=== PATIENT | female | born 1930 | race Caucasian/White ===

== ENCOUNTER 2018-01-12 15:03 | Inpatient (IN) | payer OTHER ==
[~2018-01-12] VITALS: Ht 157.5 cm; Wt 49.9 kg
[2018-01-12] MEDS ORDERED: DIPH25CA83 PO (15:30)
[2018-01-12] MEDS ORDERED: IV NORMAL SALINE 1000 ML BAG IV ONE (15:30)
[2018-01-12 15:45] LABS: BASOPHILS # (AUTO) 0.1 K/uL (0.0-8.0); BASOPHILS % (AUTO) 1.1 % (0.0-2.0); EOSINOPHILS # (AUTO) 0.6 K/uL (0.0-0.7); EOSINOPHILS % (AUTO) 5.7 % (0.0-7.0); HEMATOCRIT 36.6 % (31.2-41.9); HEMOGLOBIN 12.3 g/dL (10.9-14.3); LYMPHOCYTES # (AUTO) 2.3 K/uL (20.0-40.0); LYMPHOCYTES % (AUTO) 21.8 % (20.5-51.5); MEAN CORPUSCULAR HEMOGLOBIN 31.5 uug (24.7-32.8); MEAN CORPUSCULAR HGB CONC 34 g/dL (32.3-35.6); MEAN CORPUSCULAR VOLUME 93.5 fL (75.5-95.3); MONOCYTES # (AUTO) 0.5 K/uL (2.0-10.0); NEUTROPHILS % (AUTO) 66.4 % (38.5-71.5); PLATELET COUNT (AUTO) 258 K/uL (179-408); RED BLOOD CELL COUNT(AUTO) 3.91 MIL/uL (3.63-4.92); WHITE BLOOD COUNT (AUTO) 10.6 K/uL (3.8-11.8)
[2018-01-12 15:57] LABS: CARBON DIOXIDE 29 mmol/L (21-32); CHLORIDE 106 mmol/L (98-107); CREATININE 0.8 mg/dL (0.6-1.3); GLUCOSE 121 mg/dL (74-106); POTASSIUM 3.7 mmol/L (3.5-5.1); UREA NITROGEN, BLOOD 18 mg/dL (7-18)
[2018-01-12 16:02] LABS: ALANINE AMINOTRANSFERASE 32 U/L (14-59); ALKALINE PHOSPHATASE 90 U/L (50-136); ASPARTATE AMINOTRANSFERASE 29 U/L (15-37); BILIRUBIN,DIRECT 0.1 mg/dL (0.0-0.2); BILIRUBIN,TOTAL 0.4 mg/dL (0.2-1.0); TOTAL PROTEIN, SERUM 7.1 g/dL (6.4-8.2)
[2018-01-12 16:03] LABS: ACETAMINOPHEN < 2.0 ug/mL (10-30)
[2018-01-12 16:04] LABS: ETHANOL < 3 MG/DL (0-0)
--- NOTE | 2018-01-12 16:32 | NUR ---
MSE COMPLETED, SBAR REPORT TO HORACIO DAVENPORT. ALL MD ORDERS COMPLETED EXCEPT URINE NOT SENT, PT STATED NO URINE. 1 L0.9 NS INFUSING AND TO BE COMPLETED BY HORACIO DAVENPORT. BELONGINGS LIST DONE, MRSA NARES/OREDED AND SENT. PT COOPERATIVE.
--- NOTE | 2018-01-12 16:50 | NUR ---
Received this admission from ER per adonis this 87 yo female with the diagnosis of Generalized Weakness. Transferred to bed comfortably. Routine admission care rendered. Awake, alert, oriented x 4, able to move all extremities on purpose, unsteady gait. Saline lock LFA. Noted generalized rashes. Dr. Monroe informed of admission
[2018-01-12 17:08] VITALS: BP 176/83
[2018-01-12] MEDS ORDERED: ENALAPRILAT DIHYDRATE INJ 2.5 MG in IV NORMAL SALINE 50 ML IV PRN (18:30)
[2018-01-12] MEDS ORDERED: ACETAMINOPHEN 325 MG TABLET PO PRN (18:30)
[2018-01-12] MEDS ORDERED: ONDANSETRON 4 MG/2 ML VIAL IV PRN (18:30)
[2018-01-12] MEDS ORDERED: HYDROCODONE/APAP 5-325MG TABLET PO PRN (18:30)
[2018-01-12] MEDS ORDERED: MAGNESIUM HYDROXIDE 30 ML LIQUID UDC PO PRN (18:30)
--- NOTE | 2018-01-12 18:35 | NUR ---
Placed on [employer] SR
--- NOTE | 2018-01-12 19:30 | NUR ---
RECEIVED PATIENT IN BED ALERT, ORIENTED, NO SOB NO CHEST PAIN, SINUS RYTHM READING IN TELE, ASSISTED WITH TOILETING, KEPT CLEAN AND DRY. C0NT TO MONITOR.
[2018-01-12 19:35] VITALS: BP 128/59
[2018-01-12] MEDS: DOCUSATE SODIUM 100 MG CAPSULE PO SCH (20:19)
[2018-01-12] MEDS: METOPROLOL TARTRATE 25 MG TABLET PO SCH (20:24)
[2018-01-12] MEDS ORDERED: DOCUSATE SODIUM 250 MG CAPSULE PO SCH (21:00)
[2018-01-12 23:40] VITALS: BP 136/66
[2018-01-13] MEDS: MELATONIN 3 MG TABLET PO PRN (02:31)
--- NOTE | 2018-01-13 05:29 | NUR ---
PATIENT SLEPT LATER PART OF THE NIGHT, NO SOB NO CHEST PAIN NOTED, SINUS RTYTHM READING AT THIS TIME. ASSISTED WITH TOILETING, KEPT CLEAN AND DRY, CALL LIGHT WITHIN REACH.
[2018-01-13] MEDS: PANTOPRAZOLE SODIUM 40 MG TABLET.DR PO SCH (06:23)
[2018-01-13 07:48] LABS: BASOPHILS # (AUTO) 0.1 K/uL (0.0-8.0); BASOPHILS % (AUTO) 1.1 % (0.0-2.0); EOSINOPHILS # (AUTO) 0.9 K/uL (0.0-0.7); EOSINOPHILS % (AUTO) 7.9 % (0.0-7.0); HEMATOCRIT 32.5 % (31.2-41.9); HEMOGLOBIN 11.2 g/dL (10.9-14.3); LYMPHOCYTES # (AUTO) 2.5 K/uL (20.0-40.0); LYMPHOCYTES % (AUTO) 23.4 % (20.5-51.5); MEAN CORPUSCULAR HEMOGLOBIN 31.9 uug (24.7-32.8); MEAN CORPUSCULAR HGB CONC 34 g/dL (32.3-35.6); MEAN CORPUSCULAR VOLUME 92.5 fL (75.5-95.3); MONOCYTES # (AUTO) 0.6 K/uL (2.0-10.0); NEUTROPHILS # (AUTO) 6.6 K/uL (1.8-8.9); NEUTROPHILS % (AUTO) 61.6 % (38.5-71.5); PLATELET COUNT (AUTO) 220 K/uL (179-408); RED BLOOD CELL COUNT(AUTO) 3.52 MIL/uL (3.63-4.92); WHITE BLOOD COUNT (AUTO) 10.8 K/uL (3.8-11.8)
--- NOTE | 2018-01-13 08:00 | NUR ---
Patient noted to have dry, thickened scaly skin with reddened border. Patient stated skin condition history of psoriasis. Patient is alert, in no distress.
[2018-01-13] MEDS: METOPROLOL TARTRATE 25 MG TABLET PO SCH (08:06)
[2018-01-13] MEDS: ASPIRIN EC 81 MG TABLET.DR PO SCH (08:06)
[2018-01-13 08:07] LABS: IRON, SERUM 45 ug/dL (50-175)
[2018-01-13 08:16] LABS: THYROID STIMULATING HORMONE 63.476 mIU/mL (0.358-3.740)
[2018-01-13 08:51] LABS: ALANINE AMINOTRANSFERASE 26 U/L (14-59); ALKALINE PHOSPHATASE 76 U/L (50-136); ASPARTATE AMINOTRANSFERASE 29 U/L (15-37); BILIRUBIN,TOTAL 0.2 mg/dL (0.2-1.0); CARBON DIOXIDE 22 mmol/L (21-32); CHLORIDE 108 mmol/L (98-107); CHOLESTEROL 173 mg/dL (<200); CREATININE 0.8 mg/dL (0.6-1.3); GLUCOSE 95 mg/dL (74-106); HDL CHOLESTEROL 30 mg/dL (40-60); MAGNESIUM 1.7 mg/dL (1.8-2.4); PHOSPHOROUS 3.2 mg/dL (2.5-4.9); POTASSIUM 3.9 mmol/L (3.5-5.1); TOTAL PROTEIN, SERUM 5.9 g/dL (6.4-8.2); TRIGLYCERIDES 271 MG/DL (30-150); UREA NITROGEN, BLOOD 15 mg/dL (7-18)
[2018-01-13 11:29] VITALS: BP 161/67
[2018-01-13] MEDS ORDERED: HYDROCORTISONE 2.5% ONT. 28.35 GM TUBE TP SCH (11:30)
[2018-01-13 11:41] VITALS: BP 149/70
[2018-01-13] MEDS: MAGNESIUM SULFATE/D5W 100 ML IV SCH ×2 (13:23→15:40)
--- NOTE | 2018-01-13 14:40 | NUR ---
Patient off tele monitor temporarily, went to have a shower assisted by ROSI, permission given by .
[2018-01-13] MEDS: diphenhydrAMINE 25 MG CAP PO PRN (15:41)
[2018-01-13 15:54] VITALS: BP 136/63
[2018-01-13] MEDS: CLOBETASOL PROPIONATE 0.05% CREAM 15 GM TUBE TOP SCH (16:58)
[2018-01-13 19:23] VITALS: BP 151/46
--- NOTE | 2018-01-13 20:00 | NUR ---
PT IN ROOM ALERT AWAKE IN NO ACUTE DISTRESS. PT DOWNGRADED TO MEDSURG AT THIS TIME. PT REMINDED TO ASK FOR ASSISTANCE WHEN NEEDED. PRACTICE PROFESSIONAL SHOWING SINUS RHYTHM. NO ACUTE DISTRESS NOTED. PT AWAITING PSYCH CONSULT. WILL CONTINUE TO MONITOR. CALL LIGHT PLACED WITHIN REACH.
[2018-01-13] MEDS: DOCUSATE SODIUM 100 MG CAPSULE PO SCH (20:26)
[2018-01-13] MEDS: ATORVASTATIN 10 MG TABLET PO SCH (20:26)
[2018-01-13] MEDS: LOSARTAN POTASSIUM 25 MG TABLET PO SCH (20:28)
[2018-01-14 03:37] VITALS: BP 160/74
[2018-01-14] MEDS: hydrALAZINE HCL 25 MG TABLET PO PRN (05:58)
[2018-01-14] MEDS: diphenhydrAMINE 25 MG CAP PO PRN ×3 (06:00→18:28)
[2018-01-14] MEDS: LEVOTHYROXINE SODIUM 50 MCG TABLET PO SCH (06:00)
--- NOTE | 2018-01-14 06:00 | NUR ---
PT ABLE TO SLEEP OVERNIGHT WITHOUT DIFFICULTY. REQUESTED PRN BENADRYL FOR HER GENERALIZED ITCHING. DENIES ANY PAIN OR SOB. NO INCREASED WEAKNESS AT THIS TIME. WILL CONTINUE TO MONITOR. CALL LIGHT WITHIN REACH.
[2018-01-14] MEDS: PANTOPRAZOLE SODIUM 40 MG TABLET.DR PO SCH (06:01)
[2018-01-14 07:26] LABS: BASOPHILS # (AUTO) 0.1 K/uL (0.0-8.0); BASOPHILS % (AUTO) 1.2 % (0.0-2.0); EOSINOPHILS # (AUTO) 0.9 K/uL (0.0-0.7); EOSINOPHILS % (AUTO) 8.4 % (0.0-7.0); HEMATOCRIT 34.5 % (31.2-41.9); LYMPHOCYTES % (AUTO) 19.5 % (20.5-51.5); MEAN CORPUSCULAR HGB CONC 35 g/dL (32.3-35.6); MEAN CORPUSCULAR VOLUME 92.2 fL (75.5-95.3); MONOCYTES # (AUTO) 0.6 K/uL (2.0-10.0); MONOCYTES % (AUTO) 6.2 % (0.0-11.0); NEUTROPHILS # (AUTO) 6.6 K/uL (1.8-8.9); NEUTROPHILS % (AUTO) 64.7 % (38.5-71.5); PLATELET COUNT (AUTO) 221 K/uL (179-408); RED BLOOD CELL COUNT(AUTO) 3.75 MIL/uL (3.63-4.92); WHITE BLOOD COUNT (AUTO) 10.2 K/uL (3.8-11.8)
[2018-01-14 07:45] LABS: ALANINE AMINOTRANSFERASE 29 U/L (14-59); ALKALINE PHOSPHATASE 86 U/L (50-136); ASPARTATE AMINOTRANSFERASE 27 U/L (15-37); BILIRUBIN,TOTAL 0.3 mg/dL (0.2-1.0); CARBON DIOXIDE 25 mmol/L (21-32); CHLORIDE 106 mmol/L (98-107); CREATININE 0.8 mg/dL (0.6-1.3); GLUCOSE 109 mg/dL (74-106); MAGNESIUM 2.2 mg/dL (1.8-2.4); PHOSPHOROUS 3.6 mg/dL (2.5-4.9); POTASSIUM 3.8 mmol/L (3.5-5.1); TOTAL PROTEIN, SERUM 6.4 g/dL (6.4-8.2); UREA NITROGEN, BLOOD 13 mg/dL (7-18)
[2018-01-14] MEDS: ASPIRIN EC 81 MG TABLET.DR PO SCH (09:34)
[2018-01-14] MEDS: LOSARTAN POTASSIUM 25 MG TABLET PO SCH (09:34)
[2018-01-14] MEDS: CLOBETASOL PROPIONATE 0.05% CREAM 15 GM TUBE TOP SCH ×2 (09:35→16:59)
[2018-01-14 11:30] VITALS: BP 132/54
[2018-01-14] MEDS: METOPROLOL TARTRATE 25 MG TABLET PO SCH ×2 (12:08→20:11)
[2018-01-14 16:05] VITALS: BP 126/65
--- NOTE | 2018-01-14 16:30 | NUR ---
Patient noted to have IV access removed, slight bleeding noted. Patient stated "I was just removing the tape and it got pulled out". "I don't want this (pointing to the IV access site).
--- NOTE | 2018-01-14 16:40 | NUR ---
Per ok for patient with NO IV ACCESS. Patient has been requesting since yesterday to have her IV access removed.
[2018-01-14 18:37] LABS: *BILIRUBIN,URIN NEGATIVE (NEGATIVE); *BLOOD, URINE NEGATIVE (NEGATIVE); *CLARITY,URINE CLEAR (CLEAR); *COLOR,URINE YELLOW (YELLOW); *KETONES,URINE NEGATIVE (NEGATIVE); *PROTEIN,URINE NEGATIVE (NEGATIVE); *UROBILINOGEN,URINE 0.2 E.U./dl (NORMAL); LEUKOCYTE ESTERASE ,URINE NEGATIVE (NEGATIVE); NITRITE, URINE NEGATIVE (NEGATIVE); UGLUCOSE NEGATIVE (NEGATIVE)
--- NOTE | 2018-01-14 18:40 | NUR ---
Patient seen by psychiatrist.
--- NOTE | 2018-01-14 18:40 | NUR ---
Patient cooperative, no behavioral issues. Assisted with toileting needs. Medication administered as ordered. All needs met.
[2018-01-14 19:25] VITALS: BP 115/67
[2018-01-14 19:46] LABS: MUCUS,URINE FEW /LPF (0-FEW); SQUAMOUS EPITHELIAL CELL,UR FEW /HPF (NONE SEEN); WBC,URINE 0-3 /HPF (0-3)
[2018-01-14] MEDS: SERTRALINE HCL 50 MG TABLET PO SCH (20:11)
[2018-01-14] MEDS: ATORVASTATIN 10 MG TABLET PO SCH (20:11)
[2018-01-14] MEDS: DOCUSATE SODIUM 100 MG CAPSULE PO SCH (20:11)
[2018-01-15 03:35] VITALS: BP 168/64
[2018-01-15] MEDS: hydrALAZINE HCL 25 MG TABLET PO PRN (05:29)
--- NOTE | 2018-01-15 06:00 | NUR ---
PT ALERT AWAKE IN NO ACUTE DISTRESS. PT STILL PRESENT WITH OCCASIONAL EPISODES OF CONFUSION. NO INCREASED EPISODES OF WEAKNESS NOTED. ABLE TO MAKE NEEDS KNOWN BUT NEEDS FREQUENT RE-ORIENTATION AND RE-DIRECTION. BP NOTED 168/64. PRN HYDRALAZINE WAS ADMINISTERED. WILL CONTINUE TO MONITOR. CALL LIGHT WITHIN REACH.
[2018-01-15] MEDS: LEVOTHYROXINE SODIUM 50 MCG TABLET PO SCH (06:07)
[2018-01-15] MEDS: PANTOPRAZOLE SODIUM 40 MG TABLET.DR PO SCH (06:07)
--- NOTE | 2018-01-15 07:15 | NUR ---
Received report from store director nurse, patient in bed awake, no distress noted at this time, bed in low position, side rials up x2. Bed alarm on. Patient reported that she wants to get to sleep, because she hasnt slept in days.
[2018-01-15] MEDS: ASPIRIN EC 81 MG TABLET.DR PO SCH (09:05)
[2018-01-15] MEDS: METOPROLOL TARTRATE 25 MG TABLET PO SCH ×2 (09:06→21:13)
[2018-01-15] MEDS: SERTRALINE HCL 50 MG TABLET PO SCH (09:07)
[2018-01-15] MEDS: LOSARTAN POTASSIUM 25 MG TABLET PO SCH (09:07)
[2018-01-15] MEDS: CLOBETASOL PROPIONATE 0.05% CREAM 15 GM TUBE TOP SCH ×2 (09:08→17:00)
[2018-01-15 11:35] VITALS: BP 136/58
[2018-01-15 16:05] VITALS: BP 147/72
[2018-01-15] MEDS ORDERED: ASPI-618 PO (17:33)
[2018-01-15] MEDS ORDERED: ACID1TAB4 PO (17:33)
[2018-01-15] MEDS ORDERED: SERT50TA12 PO (17:33)
[2018-01-15] MEDS ORDERED: CLOB15CR10 TOP (17:33)
[2018-01-15] MEDS ORDERED: LOSA50TA3 PO (17:33)
[2018-01-15] MEDS ORDERED: CHOL10002 PO (17:33)
[2018-01-15] MEDS ORDERED: ATOR10TA PO (17:33)
[2018-01-15] MEDS ORDERED: METO25TA6 PO (17:33)
[2018-01-15] MEDS ORDERED: DOCU100C36 PO (17:33)
[2018-01-15] MEDS ORDERED: Amoxicillin-Clavul 875MG Tab PO (17:33)
[2018-01-15] MEDS ORDERED: LEVO50TA8 PO (17:33)
[2018-01-15] MEDS: AMOXICILLIN-CLAVUL 875-125MG TABLET PO SCH ×2 (18:17→21:12)
--- NOTE | 2018-01-15 18:42 | NUR ---
PATIENT HAS BEEN COOPERATIVE WITH CARE, CONFUSED AT TIMES, AND ATTEMPTING TO GET OUT OF BED. PATIENT IS OCCASIONALLY CONFUSED, ASKING WHEN SHE IS GOING TO GO HOME. ALL NEEDS MET, BED IN LOW POSITION, SIDE RAILS UP X2, BED ALARM ON. Addendum: 01/15/18 at 1849 by DAVID GREGG RN DISREGARD: WRONG PATIENT
--- NOTE | 2018-01-15 18:49 | NUR ---
PATIENT HAS BEEN COOPERATIVE WITH CARE, PATIENT APPEARS ANXIOUS TO WHERE SHE WILL BE DISCHARGED TO. PATIENT CONTINUES TO REPEAT THAT SHE WANTS TO GO TO A PSYCHIATRIC UNIT AT [facility].
[2018-01-15 20:00] VITALS: BP 159/62
[2018-01-15] MEDS: ATORVASTATIN 10 MG TABLET PO SCH (21:00)
[2018-01-15] MEDS: diphenhydrAMINE 25 MG CAP PO PRN (21:12)
[2018-01-15] MEDS: DOCUSATE SODIUM 100 MG CAPSULE PO SCH (21:13)
[2018-01-15] MEDS: MELATONIN 3 MG TABLET PO PRN (21:16)
[2018-01-16 04:37] VITALS: BP 125/61
[2018-01-16] MEDS: LEVOTHYROXINE SODIUM 50 MCG TABLET PO SCH (06:52)
[2018-01-16] MEDS: PANTOPRAZOLE SODIUM 40 MG TABLET.DR PO SCH (06:52)
[2018-01-16] MEDS: CHOLECALCIFEROL 1,000 UNIT TABLET PO SCH (08:52)
[2018-01-16] MEDS: SERTRALINE HCL 50 MG TABLET PO SCH (08:52)
[2018-01-16] MEDS: AMOXICILLIN-CLAVUL 875-125MG TABLET PO SCH ×2 (08:53→20:54)
[2018-01-16] MEDS: ASPIRIN EC 81 MG TABLET.DR PO SCH (08:53)
[2018-01-16] MEDS: METOPROLOL TARTRATE 25 MG TABLET PO SCH ×2 (08:55→20:55)
[2018-01-16] MEDS: LOSARTAN POTASSIUM 25 MG TABLET PO SCH (08:55)
[2018-01-16] MEDS: CLOBETASOL PROPIONATE 0.05% CREAM 15 GM TUBE TOP SCH ×2 (11:30→16:29)
[2018-01-16] MEDS: diphenhydrAMINE 25 MG CAP PO PRN (11:31)
[2018-01-16 11:43] VITALS: BP 116/68
[2018-01-16 15:43] VITALS: BP 120/71
[2018-01-16 20:00] VITALS: BP 123/68
--- NOTE | 2018-01-16 20:00 | NUR ---
PATIENT IS AWAKE IN BED, AAOX3. DENIES PAIN OR ANY DISTRESS ON ASSESSMENT. C/O OF BEING TIRED AND WANTING TO SLEEP. SAFETY MEASURES IN PLACE, CALL LIGHT LEFT WITHIN PATIENT'S REACH
[2018-01-16] MEDS: ATORVASTATIN 10 MG TABLET PO SCH (20:54)
[2018-01-16] MEDS: DOCUSATE SODIUM 100 MG CAPSULE PO SCH (20:54)
[2018-01-16] MEDS: MELATONIN 3 MG TABLET PO PRN (20:55)
[2018-01-17 05:28] VITALS: BP 126/56
[2018-01-17] MEDS: PANTOPRAZOLE SODIUM 40 MG TABLET.DR PO SCH (06:16)
[2018-01-17] MEDS: LEVOTHYROXINE SODIUM 50 MCG TABLET PO SCH (06:16)
--- NOTE | 2018-01-17 06:28 | NUR ---
PATIENT SLEPT WELL THROUGHOUT THE SHIFT, NO C/O PAIN OR ACUTE DISTRESS ON THIS SHIFT. NO SIGNIFICANT CHANGES IN STATUS. SAFETY MEASURES MAINTAINED AT ALL TIMES
--- NOTE | 2018-01-17 07:30 | NUR ---
PATIENT IS AWAKE IN BED, AAOX3. DENIES PAIN OR ANY DISTRESS ON ASSESSMENT SAFETY MEASURES IN PLACE, CALL LIGHT LEFT WITHIN PATIENT'S REACH
[2018-01-17] MEDS: CLOBETASOL PROPIONATE 0.05% CREAM 15 GM TUBE TOP SCH ×2 (08:01→16:08)
[2018-01-17] MEDS: METOPROLOL TARTRATE 25 MG TABLET PO SCH ×2 (08:01→20:36)
[2018-01-17] MEDS: AMOXICILLIN-CLAVUL 875-125MG TABLET PO SCH ×2 (08:01→20:35)
[2018-01-17] MEDS: ASPIRIN EC 81 MG TABLET.DR PO SCH (08:01)
[2018-01-17] MEDS: LOSARTAN POTASSIUM 25 MG TABLET PO SCH (08:02)
[2018-01-17] MEDS: SERTRALINE HCL 50 MG TABLET PO SCH (08:02)
[2018-01-17] MEDS: CHOLECALCIFEROL 1,000 UNIT TABLET PO SCH (08:02)
[2018-01-17] MEDS: diphenhydrAMINE 25 MG CAP PO PRN (08:35)
[2018-01-17 11:40] VITALS: BP 116/59
[2018-01-17 16:17] VITALS: BP 121/63
--- NOTE | 2018-01-17 20:00 | NUR ---
RECEIVED PATIENT AWAKE IN BED, SHE'S AAOX3 WITH FORGETFULNESS. DENIES PAIN, NO ACUTE DISTRESS ON ASSESSMENT. SAFETY MEASURES INITIATED, CALL WITHIN PATIENT;S REACH
[2018-01-17 20:09] VITALS: BP 137/61
[2018-01-17] MEDS: ATORVASTATIN 10 MG TABLET PO SCH (20:35)
[2018-01-17] MEDS: DOCUSATE SODIUM 100 MG CAPSULE PO SCH (20:35)
[2018-01-17] MEDS: MELATONIN 3 MG TABLET PO PRN (20:36)
[2018-01-18] MEDS: PANTOPRAZOLE SODIUM 40 MG TABLET.DR PO SCH (06:00)
[2018-01-18] MEDS: LEVOTHYROXINE SODIUM 50 MCG TABLET PO SCH (06:00)
--- NOTE | 2018-01-18 06:15 | NUR ---
PATIENT SLEPT MOST OF THE NIGHT, NO C/O PAIN OR ACUTE DISTRESS ON THIS SHIFT. COOPERATIVE WITH CARE. NO SIGNIFICANT CHANGES IN STATUS. ALL NEEDS MET ON THIS SHIFT.
[2018-01-18 06:16] LABS: BASOPHILS # (AUTO) 0.1 K/uL (0.0-8.0); BASOPHILS % (AUTO) 1.4 % (0.0-2.0); EOSINOPHILS # (AUTO) 0.9 K/uL (0.0-0.7); EOSINOPHILS % (AUTO) 9.4 % (0.0-7.0); HEMATOCRIT 35.2 % (31.2-41.9); HEMOGLOBIN 11.9 g/dL (10.9-14.3); LYMPHOCYTES # (AUTO) 2.5 K/uL (20.0-40.0); MEAN CORPUSCULAR HEMOGLOBIN 31.3 uug (24.7-32.8); MEAN CORPUSCULAR HGB CONC 34 g/dL (32.3-35.6); MEAN CORPUSCULAR VOLUME 93.1 fL (75.5-95.3); MONOCYTES # (AUTO) 0.6 K/uL (2.0-10.0); MONOCYTES % (AUTO) 6.3 % (0.0-11.0); NEUTROPHILS # (AUTO) 5.4 K/uL (1.8-8.9); NEUTROPHILS % (AUTO) 56.9 % (38.5-71.5); PLATELET COUNT (AUTO) 237 K/uL (179-408); RED BLOOD CELL COUNT(AUTO) 3.78 MIL/uL (3.63-4.92); WHITE BLOOD COUNT (AUTO) 9.5 K/uL (3.8-11.8)
[2018-01-18 06:28] LABS: ALANINE AMINOTRANSFERASE 48 U/L (14-59); ALKALINE PHOSPHATASE 81 U/L (50-136); ASPARTATE AMINOTRANSFERASE 44 U/L (15-37); BILIRUBIN,TOTAL 0.3 mg/dL (0.2-1.0); CARBON DIOXIDE 27 mmol/L (21-32); CHLORIDE 106 mmol/L (98-107); GLUCOSE 109 mg/dL (74-106); MAGNESIUM 1.9 mg/dL (1.8-2.4); PHOSPHOROUS 3.8 mg/dL (2.5-4.9); POTASSIUM 4.5 mmol/L (3.5-5.1); TOTAL PROTEIN, SERUM 6.3 g/dL (6.4-8.2); UREA NITROGEN, BLOOD 24 mg/dL (7-18)
[2018-01-18 06:33] LABS: THYROID STIMULATING HORMONE 56.975 mIU/mL (0.358-3.740)
[2018-01-18] MEDS: CHOLECALCIFEROL 1,000 UNIT TABLET PO SCH (08:22)
[2018-01-18] MEDS: SERTRALINE HCL 50 MG TABLET PO SCH (08:22)
[2018-01-18] MEDS: LOSARTAN POTASSIUM 25 MG TABLET PO SCH (08:22)
[2018-01-18] MEDS: AMOXICILLIN-CLAVUL 875-125MG TABLET PO SCH ×2 (08:22→20:14)
[2018-01-18] MEDS: ASPIRIN EC 81 MG TABLET.DR PO SCH (08:22)
[2018-01-18] MEDS: METOPROLOL TARTRATE 25 MG TABLET PO SCH ×2 (08:22→20:14)
[2018-01-18] MEDS: CLOBETASOL PROPIONATE 0.05% CREAM 15 GM TUBE TOP SCH ×2 (08:50→16:14)
[2018-01-18] MEDS: diphenhydrAMINE 25 MG CAP PO PRN ×2 (11:13→19:34)
[2018-01-18 11:24] VITALS: BP 136/49
[2018-01-18 15:52] VITALS: BP 131/78
[2018-01-18] MEDS: MELATONIN 3 MG TABLET PO PRN (19:34)
[2018-01-18] MEDS: DOCUSATE SODIUM 100 MG CAPSULE PO SCH (20:14)
[2018-01-18] MEDS: ATORVASTATIN 10 MG TABLET PO SCH (20:14)
--- NOTE | 2018-01-18 20:15 | NUR ---
Patient refused all 2100 medications. Education provided for each medication including risks and benefits, patient continues to refuse. Patient requesting PRN medication for itching and sleep. Administered as ordered. Will continue to monitor.
[2018-01-18 20:31] VITALS: BP 136/59
[2018-01-19 05:38] VITALS: BP 133/76
[2018-01-19] MEDS: PANTOPRAZOLE SODIUM 40 MG TABLET.DR PO SCH (06:26)
[2018-01-19] MEDS: diphenhydrAMINE 25 MG CAP PO PRN (06:29)
[2018-01-19] MEDS ORDERED: LEVOTHYROXINE SODIUM 88 MCG TABLET PO SCH (07:00)
[2018-01-19] MEDS: AMOXICILLIN-CLAVUL 875-125MG TABLET PO SCH (08:33)
[2018-01-19] MEDS: CHOLECALCIFEROL 1,000 UNIT TABLET PO SCH (08:33)
[2018-01-19] MEDS: SERTRALINE HCL 50 MG TABLET PO SCH (08:34)
[2018-01-19] MEDS: LOSARTAN POTASSIUM 25 MG TABLET PO SCH (08:34)
[2018-01-19] MEDS: ASPIRIN EC 81 MG TABLET.DR PO SCH (08:34)
[2018-01-19] MEDS: CLOBETASOL PROPIONATE 0.05% CREAM 15 GM TUBE TOP SCH ×2 (08:37→17:01)
[2018-01-19] MEDS: METOPROLOL TARTRATE 25 MG TABLET PO SCH (08:38)
--- NOTE | 2018-01-19 10:54 | NUR ---
Patient noted awake in bed. no apparent distress at this time. will continue to monitor
[2018-01-19 11:42] VITALS: BP 130/60
[2018-01-19] MEDS ORDERED: LEVO88TA5 PO (15:13)
[2018-01-19 15:35] VITALS: BP 125/49
--- NOTE | 2018-01-19 18:17 | NUR ---
Patient sitting outside room anticipating discharge. Patient in no apparent distress. No IV lines in place. Patient on room air. Patient clean and dry. Report given to nurse at [facility] RN. Patient transported per 2 person ambulance. [facility] at 6:19pm.
== END 2018-01-19 18:20 | DRG 643 ==
LOC: ER 15:03 → MED 16:52 → TELE 18:39 → MED 01-13 20:45
PROVIDERS: ADMIT Internal Medicine; ATTEND Internal Medicine
DX: E03.9 Hypothyroidism, unspecified (principal); E43 Unspecified severe protein-calorie malnutrition; F01.51 Vascular dementia, unspecified severity, with behavioral disturbance; R62.7 Adult failure to thrive; I69.319 Unspecified symptoms and signs involving cognitive functions following cerebral infarction; J01.30 Acute sphenoidal sinusitis, unspecified; E55.9 Vitamin D deficiency, unspecified; E83.42 Hypomagnesemia; E78.1 Pure hyperglyceridemia; L40.9 Psoriasis, unspecified; I11.9 Hypertensive heart disease without heart failure; I25.2 Old myocardial infarction; I25.10 Atherosclerotic heart disease of native coronary artery without angina pectoris; Z95.5 Presence of coronary angioplasty implant and graft; M19.90 Unspecified osteoarthritis, unspecified site; F01.50 Vascular dementia, unspecified severity, without behavioral disturbance, psychotic disturbance, mood disturbance, and anxiety; F41.9 Anxiety disorder, unspecified; F32.9 Major depressive disorder, single episode, unspecified; Z91.81 History of falling; Z59.9 Problem related to housing and economic circumstances, unspecified; Z68.20 Body mass index [BMI] 20.0-20.9, adult; Z98.42 Cataract extraction status, left eye; Z98.41 Cataract extraction status, right eye
CPT/HCPCS: 36415; 70030-TC; 70450; 71045; 82306; 83550; 83735; 84100; 84443; 85025; 87086; 93005; 93307; A4663; G0480; G0480-TC; J3475; J3490; J7030; J7040; Q0163

== ENCOUNTER 2018-04-14 13:32 | Inpatient (IN) | payer OTHER ==
[~2018-04-14] VITALS: Ht 157.5 cm; Wt 45.4 kg
[~2018-04-14 13:32] MED LIST: ACID1TAB4 PO; ASPI-618 PO; ATOR10TA PO; Amoxicillin-Clavul 875MG Tab PO; CHOL10002 PO; CLOB15CR10 TOP; DIPH25CA83 PO; DOCU100C36 PO; LEVO88TA5 PO; LOSA50TA3 PO; METO25TA6 PO; SERT50TA12 PO
[2018-04-14] MEDS ORDERED: MELA3TAB PO (14:01)
[2018-04-14] MEDS ORDERED: DOCU100C36 PO (14:01)
[2018-04-14] MEDS ORDERED: HYDR-3326 PO (14:01)
[2018-04-14] MEDS ORDERED: LEVO75TA7 PO (14:01)
[2018-04-14] MEDS ORDERED: BISA10SU8 RC (14:01)
[2018-04-14] MEDS ORDERED: ZOLP5TAB2 PO (14:01)
[2018-04-14] MEDS ORDERED: ACET-2154 PO (14:01)
[2018-04-14] MEDS ORDERED: SENN-167 PO (14:01)
[2018-04-14] MEDS ORDERED: LACT10SO PO (14:01)
[2018-04-14 14:04] LABS: BASOPHILS # (AUTO) 0.1 K/uL (0.0-8.0); BASOPHILS % (AUTO) 1.3 % (0.0-2.0); EOSINOPHILS # (AUTO) 0.3 K/uL (0.0-0.7); EOSINOPHILS % (AUTO) 5.4 % (0.0-7.0); HEMATOCRIT 41.2 % (31.2-41.9); LYMPHOCYTES # (AUTO) 1.7 K/uL (20.0-40.0); LYMPHOCYTES % (AUTO) 28.5 % (20.5-51.5); MEAN CORPUSCULAR HEMOGLOBIN 31.5 uug (24.7-32.8); MEAN CORPUSCULAR HGB CONC 34 g/dL (32.3-35.6); MEAN CORPUSCULAR VOLUME 93.1 fL (75.5-95.3); MONOCYTES # (AUTO) 0.4 K/uL (2.0-10.0); MONOCYTES % (AUTO) 7.4 % (0.0-11.0); NEUTROPHILS # (AUTO) 3.4 K/uL (1.8-8.9); NEUTROPHILS % (AUTO) 57.4 % (38.5-71.5); PLATELET COUNT (AUTO) 167 K/uL (179-408); RED BLOOD CELL COUNT(AUTO) 4.43 MIL/uL (3.63-4.92); WHITE BLOOD COUNT (AUTO) 5.9 K/uL (3.8-11.8)
[2018-04-14 14:10] LABS: CARBON DIOXIDE 29 mmol/L (21-32); CHLORIDE 103 mmol/L (98-107); CREATININE 0.9 mg/dL (0.6-1.3); GLUCOSE 104 mg/dL (74-106); POTASSIUM 3.7 mmol/L (3.5-5.1); UREA NITROGEN, BLOOD 21 mg/dL (7-18)
[2018-04-14 14:16] LABS: ALANINE AMINOTRANSFERASE 38 U/L (14-59); ALKALINE PHOSPHATASE 91 U/L (50-136); ASPARTATE AMINOTRANSFERASE 31 U/L (15-37); BILIRUBIN,DIRECT 0.1 mg/dL (0.0-0.2); BILIRUBIN,TOTAL 0.3 mg/dL (0.2-1.0); TOTAL PROTEIN, SERUM 7.7 g/dL (6.4-8.2)
[2018-04-14 14:18] LABS: ACETAMINOPHEN < 2.0 ug/mL (10-30)
[2018-04-14 14:23] LABS: ETHANOL < 3 MG/DL (0-0)
--- NOTE | 2018-04-14 14:46 | NUR ---
called juana for psych eval.
[2018-04-14] MEDS ORDERED: LOSARTAN POTASSIUM 50 MG TABLET PO STA (16:01)
--- NOTE | 2018-04-14 16:40 | NUR ---
pt transfered to [facility] in stable condition. pt remained comfortable duringthe whole er stay. deneis any headache or dizziness or nausea.
--- NOTE | 2018-04-14 16:45 | NUR ---
Patient received from ER on a gurney. Pt is alert/oriented x4. Pt's grandson Miguel Miller is present. Pt is cooperative with admission but verbalizes that she does not think that she needs to be here. VS are taken, valuable given to the grandson. Pt states that she wishes that she was but states she would never do anything to hurt self. pt contracts for safety. Pt signed the paperwork. dr. Cardozo and dr. Monroe were notified.
[2018-04-14 17:00] VITALS: BP 142/92
[2018-04-14] MEDS ORDERED: ACETAMINOPHEN 325 MG TABLET PO PRN (17:00)
[2018-04-14] MEDS ORDERED: MAG HYDROX/AL HYDROX/SIMETH 30 ML LIQUID UDC PO PRN (17:00)
[2018-04-14] MEDS ORDERED: MAGNESIUM HYDROXIDE 30 ML LIQUID UDC PO PRN (17:00)
--- NOTE | 2018-04-14 17:07 | NUR ---
OTHER HISTORY: SPONDYLOLISTHESIS, LUMBAR REGION. Addendum: 04/14/18 at 1722 by WENDY VITALE RN Amended: Links added.
--- NOTE | 2018-04-14 19:45 | NUR ---
RECEIVED PATIENT IN HER ROOM, SITTING IN HER BED, SHE IS NOTED A/O X 3. SHE IS ABLE TO AMBULATE WITH SLOW STEADY GAIT. A WALKER WAS OFFERED; HOWEVER, PT REFUSED. SHE IS NOTED FORGETFUL, LOW MOOD, SAD FACIAL EXPRESSION, HYPERVERBAL, PREOCCUPIED ON HER GRANDSON WELLBEING AND HER SOCIAL SECURITY CHECKS. SHE IS NOTED HAVING THOUGHT OF , SHE STATED, "I PRAY EVERY NIGHT THAT GOD TAKES ME". SHE IS ABLE TO VERBALIZED FEELINGS. PATIENT ABLE TO CFS. PATIENT COMPLIANT WITH MEDICATION. SAFETY EMPHASIS, BED AT LOWEST POSITION WITH WHEELS LOCKED, SIDE RAIL UP X 3 AND FREQUENT HEAD CHECKS. WILL CONTINUE TO MONITOR.
[2018-04-14 20:37] VITALS: BP 185/90
[2018-04-14] MEDS: LORAZEPAM 0.5 MG TABLET PO PRN (20:44)
--- NOTE | 2018-04-14 21:45 | NUR ---
PATIENT'S BLOOD PRESSURE IS ELEVATED 185/[address] HEMPHILL WAS NOTIFY AND NEW ORDER OBTAINED TO ADMINISTER CATAPRES 0.1MG PO PRN Q6HRS FOR SBP>150MMHG. ORDER NOTED AND CARRIED OUT. WILL CONTINUE TO MONITOR.
[2018-04-14] MEDS: ZOLPIDEM 5 MG TABLET PO PRN (22:13)
[2018-04-14] MEDS: CLONIDINE HCL 0.1 MG TABLET PO PRN (22:14)
[2018-04-14 23:41] VITALS: BP 155/81
--- NOTE | 2018-04-14 23:42 | NUR ---
RECHECKED B/P: 155/81MMHG, PULSE 73BPM. PATIENT IN NO DISTRESS, RESTING COMFORTABLE IN HER BED. WILL RECHECKED IN ONE HR. WILL CONTINUE TO MONITOR.
[2018-04-15 05:56] VITALS: BP 117/70
[2018-04-15 07:05] LABS: *BILIRUBIN,URIN NEGATIVE (NEGATIVE); *BLOOD, URINE NEGATIVE (NEGATIVE); *CLARITY,URINE CLEAR (CLEAR); *COLOR,URINE YELLOW (YELLOW); *KETONES,URINE TRACE (NEGATIVE); *PROTEIN,URINE NEGATIVE (NEGATIVE); *UROBILINOGEN,URINE 0.2 E.U./dl (NORMAL); LEUKOCYTE ESTERASE ,URINE NEGATIVE (NEGATIVE); NITRITE, URINE NEGATIVE (NEGATIVE); PH,URINE 6.5 (5.0-8.0); UGLUCOSE NEGATIVE (NEGATIVE)
[2018-04-15 07:10] LABS: BACTERIA,URINE FEW /HPF (NONE SEEN); RBC,URINE 0-3 /HPF (0-3); SQUAMOUS EPITHELIAL CELL,UR FEW /HPF (NONE SEEN); WBC,URINE 0-3 /HPF (0-3)
--- NOTE | 2018-04-15 07:30 | NUR ---
PATIENT SLEPT FOR APPROX 7.00 HRS THROUGH THE NIGHT. CONTINUE COMPLAINT WITH MEDICATION REGIMENT
[2018-04-15 07:34] LABS: *AMPHETAMINE, URINE NEGATIVE (NEGATIVE); *BARBITURATE, URINE NEGATIVE (NEGATIVE); *CANNABINOID, URINE NEGATIVE (NEGATIVE); *COCCAINE, URINE NEGATIVE (NEGATIVE); *OPIATE, URINE POSITIVE (NEGATIVE); *PHENCYCLIDINE SCREEN,URINE NEGATIVE (NEGATIVE)
[2018-04-15 08:24] VITALS: BP 126/73
[2018-04-15] MEDS: SERTRALINE HCL 50 MG TABLET PO SCH (08:51)
[2018-04-15] MEDS ORDERED: BISACODYL 10 MG SUPP.RECT RC PRN (11:15)
[2018-04-15] MEDS ORDERED: HYDROCODONE/APAP 5-325MG TABLET PO PRN (11:15)
--- NOTE | 2018-04-15 12:20 | NUR ---
Initial discharge plan: Pt lives at [facility] [[address] [facility], [place] [address] ]. Per pt, she would like to return to the facility upon discharge. Pt provided consent to speak with her grandson, Miguel Cardona ([phone]). Sw will speak with Pt and MD about appropriate discharge plans and form a safe and proper discharge.
[2018-04-15] MEDS: SULFAMETH/TRIMETH 800/160 MG TABLET PO SCH ×2 (13:59→20:20)
--- NOTE | 2018-04-15 14:56 | NUR ---
Discharge planning: grey roll worker called and spoke with Pt Miguel chand ([phone]). grey roll worker informed Miguel of Pt 5150 hold who states "she always does this". grey roll worker informed Miguel that Pt would like to return back to [facility] and is agreeable with initial d/c plan. grey roll worker will continue to follow case and form a safe and proper d/c.
--- NOTE | 2018-04-15 16:00 | NUR ---
Firearms Report: pest control worker filed a firearms report with the [employer]J due to Pt being on a 5150 DTS hold.
[2018-04-15] MEDS: HYDROCORTISONE 1% CREAM 30 GM TUBE TP SCH ×2 (16:10→20:21)
[2018-04-15 16:21] VITALS: BP 130/72
[2018-04-15] MEDS: DOCUSATE SODIUM 100 MG CAPSULE PO SCH (16:54)
[2018-04-15] MEDS: LORAZEPAM 0.5 MG TABLET PO PRN (20:20)
[2018-04-15] MEDS: SENNOSIDES 1 TABLET PO SCH (20:20)
[2018-04-15 20:49] VITALS: BP 143/88
--- NOTE | 2018-04-16 05:02 | NUR ---
aaox3 ambulatory. compliant with meds. no acute distress noted. slept most of the shift, at least 7 hors of sleep. will monitor patient. needs attended. left arm reddenned, elevated on a pillow.left arm warm to touch. on bactrim for cellulitis of the left arm.
[2018-04-16] MEDS ORDERED: LEVOTHYROXINE SODIUM 75 MCG TABLET PO SCH (07:00)
[2018-04-16 07:10] LABS: BASOPHILS # (AUTO) 0.1 K/uL (0.0-8.0); BASOPHILS % (AUTO) 1.8 % (0.0-2.0); EOSINOPHILS # (AUTO) 0.3 K/uL (0.0-0.7); EOSINOPHILS % (AUTO) 4.6 % (0.0-7.0); HEMATOCRIT 38.6 % (31.2-41.9); LYMPHOCYTES # (AUTO) 2.1 K/uL (20.0-40.0); MEAN CORPUSCULAR HEMOGLOBIN 31.2 uug (24.7-32.8); MEAN CORPUSCULAR HGB CONC 34 g/dL (32.3-35.6); MEAN CORPUSCULAR VOLUME 92.6 fL (75.5-95.3); MONOCYTES # (AUTO) 0.4 K/uL (2.0-10.0); MONOCYTES % (AUTO) 7.2 % (0.0-11.0); NEUTROPHILS % (AUTO) 51.4 % (38.5-71.5); PLATELET COUNT (AUTO) 159 K/uL (179-408); RED BLOOD CELL COUNT(AUTO) 4.17 MIL/uL (3.63-4.92); WHITE BLOOD COUNT (AUTO) 5.9 K/uL (3.8-11.8)
[2018-04-16 07:24] LABS: CARBON DIOXIDE 24 mmol/L (21-32); CHLORIDE 105 mmol/L (98-107); CHOLESTEROL 221 mg/dL (<200); GLUCOSE 107 mg/dL (74-106); HDL CHOLESTEROL 50 mg/dL (40-60); MAGNESIUM 2.1 mg/dL (1.8-2.4); PHOSPHOROUS 4.1 mg/dL (2.5-4.9); POTASSIUM 3.8 mmol/L (3.5-5.1); TRIGLYCERIDES 173 MG/DL (30-150); UREA NITROGEN, BLOOD 26 mg/dL (7-18)
[2018-04-16 07:30] VITALS: BP 158/87
[2018-04-16 07:34] LABS: THYROID STIMULATING HORMONE 37.682 mIU/mL (0.358-3.740)
[2018-04-16] MEDS: SERTRALINE HCL 50 MG TABLET PO SCH (08:13)
[2018-04-16] MEDS: HYDROCORTISONE 1% CREAM 30 GM TUBE TP SCH ×2 (08:13→20:05)
[2018-04-16] MEDS: SULFAMETH/TRIMETH 800/160 MG TABLET PO SCH ×2 (08:13→20:06)
[2018-04-16] MEDS: DOCUSATE SODIUM 100 MG CAPSULE PO SCH ×2 (08:13→16:47)
--- NOTE | 2018-04-16 10:00 | NUR ---
Discharge planning: boom stick worker spoke with Mario ([phone]) at [facility] and confirmed that Pt is on a bed hold and able to return to facility when ready for discharge.
--- NOTE | 2018-04-16 11:27 | NUR ---
Discharge planning: alley worker followed up with [facility] ([phone]) to get assigned complex case manager name and contact info in order to send daily utilization reviews. alley worker received no answer and left voicemail for return phone call.alley worker will continue to plan a safe and proper discharge.
[2018-04-16] MEDS: LORAZEPAM 0.5 MG TABLET PO PRN ×2 (11:53→20:05)
[2018-04-16] MEDS: OMEGA-3 FATTY ACIDS/FISH OIL CAPSULE PO SCH ×2 (12:15→13:05)
--- NOTE | 2018-04-16 15:48 | NUR ---
UR note: meat counter worker viewed case management worksheet containing insurance information for Pt. Information indicated that [employer] was the contact [ ]. Per manager of case management, a voicemail was left requesting call back for auth and the recorded message suggested sending faxes to [ ]. meat counter worker also left voicemail with [employer] requesting call back with manager of case managementaudio visual manager information. meat counter worker sent Pt UR (f/s, h&p, progress notes, medications) to suggested fax number with fax cover sheet requesting callback for manager of case managementaudio visual manager information. meat counter worker later received email from Samantha in intake indicating a call a was made to IPA: [facility] [ ] and spoke with Figueroa Rios in [ ]. Per email, Figueroa Rios suggested to fax to [ ]. meat counter worker also faxed UR to suggested fax number. meat counter worker will continue to follow case and plan for a safe and proper d/c.
[2018-04-16 16:00] VITALS: BP 155/73
[2018-04-16 19:30] VITALS: BP 144/74
[2018-04-16] MEDS: MUPIROCIN 2% OINT 22 GM TUBE NS SCH (20:02)
[2018-04-16] MEDS: diphenhydrAMINE 25 MG CAP PO PRN (20:05)
[2018-04-16] MEDS: SENNOSIDES 1 TABLET PO SCH (20:05)
[2018-04-16] MEDS: ATORVASTATIN 20 MG TABLET PO SCH (20:06)
[2018-04-17] MEDS: LEVOTHYROXINE SODIUM 88 MCG TABLET PO SCH (06:06)
--- NOTE | 2018-04-17 06:30 | NUR ---
End off shift report: No significant change, forgetful and anxious. Compliant w/ meds & care but refused morning shower today. Slept 6 hrs throughout shift. Assisted with all needs.
[2018-04-17 07:30] VITALS: BP 140/59
[2018-04-17] MEDS: MUPIROCIN 2% OINT 22 GM TUBE NS SCH ×2 (08:32→20:02)
[2018-04-17] MEDS: HYDROCORTISONE 1% CREAM 30 GM TUBE TP SCH ×2 (08:32→20:02)
[2018-04-17] MEDS: SULFAMETH/TRIMETH 800/160 MG TABLET PO SCH ×2 (08:34→20:01)
[2018-04-17] MEDS: DOCUSATE SODIUM 100 MG CAPSULE PO SCH ×2 (08:34→16:58)
[2018-04-17] MEDS: SERTRALINE HCL 50 MG TABLET PO SCH (08:35)
[2018-04-17] MEDS: OMEGA-3 FATTY ACIDS/FISH OIL CAPSULE PO SCH (08:44)
[2018-04-17] MEDS: LORAZEPAM 0.5 MG TABLET PO PRN (12:09)
[2018-04-17 15:12] VITALS: BP 159/66
[2018-04-17] MEDS: AMLODIPINE 5 MG TABLET PO SCH (18:32)
[2018-04-17] MEDS: ATORVASTATIN 20 MG TABLET PO SCH (20:01)
[2018-04-17] MEDS: SENNOSIDES 1 TABLET PO SCH (20:01)
[2018-04-17 20:32] VITALS: BP 153/86
[2018-04-17] MEDS: ZOLPIDEM 5 MG TABLET PO PRN (20:53)
[2018-04-17 21:00] VITALS: BP 138/71
[2018-04-18] MEDS: LEVOTHYROXINE SODIUM 88 MCG TABLET PO SCH (06:11)
--- NOTE | 2018-04-18 06:39 | NUR ---
GPS: REMAIN COOPERATIVE WITH MEDICATIONS.SLEPT 8 HRS AFTER SLEEPING MEDS GIVEN. NO ANXIETY NOTED AT THIS TIME. COMPLIANT WITH AM PO MEDICATION.CONTINUE PLAN OF CARE.
[2018-04-18 07:30] VITALS: BP 142/64
[2018-04-18] MEDS: SERTRALINE HCL 50 MG TABLET PO SCH (08:03)
[2018-04-18] MEDS: SULFAMETH/TRIMETH 800/160 MG TABLET PO SCH ×2 (08:03→20:08)
[2018-04-18] MEDS: DOCUSATE SODIUM 100 MG CAPSULE PO SCH ×2 (08:03→16:32)
[2018-04-18] MEDS: MUPIROCIN 2% OINT 22 GM TUBE NS SCH ×2 (08:03→20:09)
[2018-04-18] MEDS: AMLODIPINE 5 MG TABLET PO SCH ×2 (08:04→20:08)
[2018-04-18] MEDS: OMEGA-3 FATTY ACIDS/FISH OIL CAPSULE PO SCH (08:04)
[2018-04-18] MEDS: HYDROCORTISONE 1% CREAM 30 GM TUBE TP SCH ×2 (08:05→20:08)
[2018-04-18] MEDS: LORAZEPAM 0.5 MG TABLET PO PRN ×2 (09:21→15:06)
[2018-04-18 13:00] VITALS: BP 136/64
[2018-04-18 16:14] VITALS: BP 136/64
[2018-04-18 20:00] VITALS: BP 192/79
[2018-04-18] MEDS: diphenhydrAMINE 25 MG CAP PO PRN (20:08)
[2018-04-18] MEDS: SENNOSIDES 1 TABLET PO SCH (20:08)
[2018-04-18] MEDS: ATORVASTATIN 20 MG TABLET PO SCH (20:09)
--- NOTE | 2018-04-18 20:10 | NUR ---
PATIENT C/O GENERALIZED ITCHING. GIVEN BENADRYL 25MG PO PRN. WILL CONTINUE TO MONITOR AND ASSESS.
--- NOTE | 2018-04-18 21:00 | NUR ---
PATIENT REQUESTING FOR SLEEPING PILL. GIVEN AMBIEN 5MG PO PRN FOR SLEEP. WILL CONTINUE TO MONITOR AND ASSESS. BLOOD PRESSURE SLOWING TRENDING DOWN.
--- NOTE | 2018-04-18 21:48 | NUR ---
PATIENT ASLEEP. BED ALARM ON. NO RESP. DISTRESS NOTED. WILL CONTINUE TO MONITOR.
[2018-04-19 05:00] VITALS: BP 131/69
--- NOTE | 2018-04-19 05:00 | NUR ---
PATIENT AWAKE IN BED. RECHECKED PATIENTS BLOOD PRESSURE 131/69. ALL OTHER VS WNL. PATIENT SLEPT A TOTAL OF 7 HOURS. DENIES PAIN OR DISCOMFORT. ALL NEEDS ATTENDED. WILL CONTINUE TO MONITOR AND ASSESS.
[2018-04-19] MEDS: LEVOTHYROXINE SODIUM 88 MCG TABLET PO SCH ×2 (06:08→08:22)
[2018-04-19 07:30] VITALS: BP 134/62
[2018-04-19] MEDS: DOCUSATE SODIUM 100 MG CAPSULE PO SCH ×2 (08:22→16:40)
[2018-04-19] MEDS: OMEGA-3 FATTY ACIDS/FISH OIL CAPSULE PO SCH (08:35)
[2018-04-19] MEDS: MUPIROCIN 2% OINT 22 GM TUBE NS SCH ×2 (08:35→20:01)
[2018-04-19] MEDS: SULFAMETH/TRIMETH 800/160 MG TABLET PO SCH ×2 (08:36→20:00)
[2018-04-19] MEDS: HYDROCORTISONE 1% CREAM 30 GM TUBE TP SCH ×2 (08:36→20:01)
[2018-04-19] MEDS: AMLODIPINE 5 MG TABLET PO SCH ×2 (08:36→20:00)
[2018-04-19] MEDS: SERTRALINE HCL 50 MG TABLET PO SCH (08:36)
--- NOTE | 2018-04-19 12:09 | NUR ---
UR Note: gang worker called [email or web address] [ ] to inquire who Pt's telephonic nurse case manager is. gang worker left another voicemail asking for callback. Since social services assistant has no direct contact at [facility], UR was sent to general fax [ ]. gang worker also called IPA: [facility] [ ; ] to inquire who Pt's telephonic nurse case manager is. gang worker left voicemail requesting callback. Since social services assistant has no direct truck driver salesperson yet, a UR fax was sent to [facility] suggested fax (see previous note) [ ]. gang worker will continue to follow case and plan for a safe and proper d/c.
--- NOTE | 2018-04-19 13:21 | NUR ---
Discharge planning: Pt requested to speak with social service assistant. trailhead construction worker arrived at Pt bedside to address Pt concerns. Pt ruminating on past [facility] visit on the medical floor and kept repeating that she "isn't supposed to be here". Pt asked if she could have her medical records from previous visit. trailhead construction worker provided Pt with medical record phone number. 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 trailhead construction worker encouraged Pt to focus on present and thinking about current goals while here in [facility]. trailhead construction worker had to redirect Pt many times during conversation. trailhead construction worker will continue to form a safe and proper d/c plan.
[2018-04-19 15:40] VITALS: BP 156/77
[2018-04-19 19:30] VITALS: BP 134/79
--- NOTE | 2018-04-19 19:30 | NUR ---
Received patient awake, alert, standing by the nurse's station. No acute distress noted. Vital signs within range at start of shift. Patient on a 14 day hold until 04/30/18. Patient currently denying S.I. with no active plans. 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 On ATB therapy. Room checked for safety at start of shift. Will continue to monitor through shift.
[2018-04-19] MEDS: ATORVASTATIN 20 MG TABLET PO SCH (20:00)
[2018-04-19] MEDS: SENNOSIDES 1 TABLET PO SCH (20:00)
[2018-04-19] MEDS: ZOLPIDEM 5 MG TABLET PO PRN (20:17)
[2018-04-20] MEDS: LEVOTHYROXINE SODIUM 88 MCG TABLET PO SCH (06:06)
--- NOTE | 2018-04-20 06:19 | NUR ---
Patient slept well through the shift. Slept a total of 8 hours. Compliant with care & with medication. No signs of S.I. noted during shift. No anxiousness or agitation noted. All needs attended to promptly. Safety & comfort measures provided. Will endorse to day shift nurse.
[2018-04-20 07:30] VITALS: BP 149/76
[2018-04-20] MEDS: OMEGA-3 FATTY ACIDS/FISH OIL CAPSULE PO SCH ×2 (08:25→08:40)
[2018-04-20] MEDS: DOCUSATE SODIUM 100 MG CAPSULE PO SCH ×2 (08:25→17:10)
[2018-04-20] MEDS: SULFAMETH/TRIMETH 800/160 MG TABLET PO SCH ×2 (08:25→20:12)
[2018-04-20] MEDS: SERTRALINE HCL 50 MG TABLET PO SCH (08:25)
[2018-04-20] MEDS: AMLODIPINE 5 MG TABLET PO SCH ×2 (08:26→20:13)
[2018-04-20] MEDS: HYDROCORTISONE 1% CREAM 30 GM TUBE TP SCH ×2 (08:26→20:14)
[2018-04-20] MEDS: MUPIROCIN 2% OINT 22 GM TUBE NS SCH ×2 (08:26→20:12)
[2018-04-20] MEDS: LORAZEPAM 0.5 MG TABLET PO PRN (12:01)
--- NOTE | 2018-04-20 15:36 | NUR ---
UR Note: JOHN faxed updated clinicals to [facility] assigned Library Consultant, Jake (ph. [phone]; fax [phone]). Awaiting further authorization. JOHN will continue to follow-up.
[2018-04-20 17:25] VITALS: BP_SYST 148; BP_SYST 94; BP_DIAS 54; BP_DIAS 64
--- NOTE | 2018-04-20 20:00 | NUR ---
Received patient in bed, oriented x 3. NAD noted.
[2018-04-20 20:07] VITALS: BP 148/64
[2018-04-20] MEDS: ATORVASTATIN 20 MG TABLET PO SCH (20:12)
[2018-04-20] MEDS: SENNOSIDES 1 TABLET PO SCH (20:13)
[2018-04-20] MEDS: diphenhydrAMINE 25 MG CAP PO PRN (21:14)
--- NOTE | 2018-04-20 21:14 | NUR ---
Medicated with Benadryl per patient's request. Denies SI. Contact isolation for MRSA nares maintained.
--- NOTE | 2018-04-20 22:25 | NUR ---
Pacing the hallways. Medicated with Ambien for sleep.
[2018-04-20] MEDS: ZOLPIDEM 5 MG TABLET PO PRN (22:28)
--- NOTE | 2018-04-21 | NUR ---
Sleeping after Ambien.
[2018-04-21] MEDS: LEVOTHYROXINE SODIUM 88 MCG TABLET PO SCH (06:30)
--- NOTE | 2018-04-21 06:43 | NUR ---
Slept for 9 hours. Compliant with medications during the shift. Continues to deny SI.
[2018-04-21 07:30] VITALS: BP 153/79
[2018-04-21] MEDS: SULFAMETH/TRIMETH 800/160 MG TABLET PO SCH (09:27)
[2018-04-21] MEDS: SERTRALINE HCL 50 MG TABLET PO SCH (09:27)
[2018-04-21] MEDS: HYDROCORTISONE 1% CREAM 30 GM TUBE TP SCH (09:27)
[2018-04-21] MEDS: OMEGA-3 FATTY ACIDS/FISH OIL CAPSULE PO SCH (09:27)
[2018-04-21] MEDS: DOCUSATE SODIUM 100 MG CAPSULE PO SCH (09:27)
[2018-04-21] MEDS: AMLODIPINE 5 MG TABLET PO SCH (09:27)
[2018-04-21] MEDS: MUPIROCIN 2% OINT 22 GM TUBE NS SCH (09:28)
--- NOTE | 2018-04-21 10:08 | NUR ---
Discharge Note: Patient will be discharged back to [facility] [[address] [facility], [place] [address] ] and transportation will be provided by ambulance. Ambulance will be arranged with patients insurance. fly worker spoke with Jake, case management director [[phone], [phone]] at [facility], who has confirmed transportation with [facility] [tracking number: [id number]]. Patient is aware and agreeable with discharge plan. fly worker called and left voicemail for brodie Rivera [[phone]], informing him of patient discharge. Patient is alert and oriented x3 and denies any SI/HI. Patient will follow-up with her PCP, Dr. Mace (financial services specialist) Dr. Cardozo (psychiatrist). Patient was given outpatient mental health resources [facility] Crisis Line , Debbie Hernandez , and the [place] Suicide Prevention Lifeline . Pt was also provided with a brief substance abuse intervention and provided with resources. Pt has been made aware and understanding of all referrals and resources. Addendum: 04/21/18 at 1050 by CHAVA LOPEZ Update: fly worker called and spoke with Delma at [facility] [[phone]] to confirm BLS transport at 12:30pm. Authorization Number: [id number].
[2018-04-21 11:40] VITALS: BP 154/75
[2018-04-21] MEDS: CLONIDINE HCL 0.1 MG TABLET PO PRN (11:42)
[2018-04-21 12:36] VITALS: BP 148/73
[2018-04-21 12:50] VITALS: BP 148/60
--- NOTE | 2018-04-21 13:00 | NUR ---
GPS/HUMAN SERVICE WORKER NOTE. patient is compliant with meds today anxious about discharge, irritable about wait but redirectable.Denies any SI. Quality Rep Harman Smallwood N.P. aware of blood pressure today, stable for discharge. MRSA colonized. discontinue Bactroban. instructed on discharge today patient anxious, report provided to facility nurse Karla. Discharge Note: Patient will be discharged back to [facility] [[address] [place] [address] ] and transportation will be provided by ambulance. Patient will follow-up with her PCP, Dr. Mace (mri manager) Dr. Cardozo (psychiatrist). Patient was given outpatient mental health resources [facility] Crisis Line , Debbie Hernandez , and the National Suicide Prevention Lifeline . Pt was also provided with a brief substance abuse intervention and provided with resources. Pt has been made aware and understanding of all referrals and resources.
== END 2018-04-21 13:00 | DRG 885 ==
LOC: ER 13:35 → GPS 16:37
PROVIDERS: ADMIT Psychiatry & Neurology Psychiatry; ATTEND Internal Medicine
DX: F33.2 Major depressive disorder, recurrent severe without psychotic features (principal); F02.80 Dementia in other diseases classified elsewhere, unspecified severity, without behavioral disturbance, psychotic disturbance, mood disturbance, and anxiety; L03.113 Cellulitis of right upper limb; E44.0 Moderate protein-calorie malnutrition; Z68.1 Body mass index [BMI] 19.9 or less, adult; E03.9 Hypothyroidism, unspecified; I25.2 Old myocardial infarction; G30.9 Alzheimer's disease, unspecified; D69.6 Thrombocytopenia, unspecified; G89.29 Other chronic pain; M54.5 Low back pain; L40.9 Psoriasis, unspecified; I25.10 Atherosclerotic heart disease of native coronary artery without angina pectoris; Z95.5 Presence of coronary angioplasty implant and graft; E78.5 Hyperlipidemia, unspecified; I11.9 Hypertensive heart disease without heart failure; J30.2 Other seasonal allergic rhinitis; M47.9 Spondylosis, unspecified; L25.9 Unspecified contact dermatitis, unspecified cause; E78.1 Pure hyperglyceridemia; Z91.81 History of falling; Z22.322 Carrier or suspected carrier of Methicillin resistant Staphylococcus aureus; Z86.73 Personal history of transient ischemic attack (TIA), and cerebral infarction without residual deficits; R26.81 Unsteadiness on feet; R79.89 Other specified abnormal findings of blood chemistry; G47.00 Insomnia, unspecified; F10.10 Alcohol abuse, uncomplicated; Y90.9 Presence of alcohol in blood, level not specified
CPT/HCPCS: 36415; 71045; 80307; 83735; 84100; 84443; 85025; 87086; 93005; A4663; G0480; G0480-TC; Q0163

== ENCOUNTER 2019-05-19 16:04 | Emergency (ER) | payer MEDICARE, OTHER ==
[~2019-05-19] VITALS: Ht 157.5 cm; Wt 45.4 kg
[~2019-05-19 16:04] MED LIST changes: -ACID1TAB4 PO; -ASPI-618 PO; -ATOR10TA PO; -Amoxicillin-Clavul 875MG Tab PO; +BISA10SU11 RC; -CHOL10002 PO; -CLOB15CR10 TOP; +HYDR-3326 PO; +LACT10SO PO; +LEVO75TA7 PO; -LEVO88TA5 PO; -LOSA50TA3 PO; -METO25TA6 PO; +SENN-168 PO; -SERT50TA12 PO
--- NOTE | 2019-05-19 17:05 | NUR ---
PATIENT WAS SEEN BY MD. SHE IS AWAKE AND ALERT IN NO DISTRESS
[2019-05-19] MEDS ORDERED: ACETAMINOPHEN 325 MG TABLET PO ONE (17:15)
[2019-05-19] MEDS ORDERED: IBUPROFEN 200 MG TABLET PO ONE (17:15)
[2019-05-19] MEDS ORDERED: IBUPROFEN 200 MG TABLET ONE (17:29)
[2019-05-19] MEDS ORDERED: ACETAMINOPHEN 325 MG TABLET ONE (17:29)
--- NOTE | 2019-05-19 18:00 | NUR ---
PATIENT TO BE DISCHARGED BACK TO HER FACILITY. WE CALLED THE FACILITY, [facility] AND NOTIFIED THEM OF HER STATUS AND THAT SHE WILL BE RETURNING TO FACILTY TODAY. BLS AMBULANCE TO TAKE HER BACK.
--- NOTE | 2019-05-19 18:39 | NUR ---
AWAITING AMBULANCE TRANSFER. PATIENT IS AWAKE AND ALERT WITH NO COMPLAINTS.
--- NOTE | 2019-05-19 19:07 | NUR ---
[facility] STAFF HERE TO TRANSPORT PATIENT BACK TO HER FACILITY. IMAGING RESULTS AND DC PAPERS HANDED TO VERN KERN.
[2019-05-19 19:08] VITALS: BP 159/87
== END 2019-05-19 19:10 | disposition home or self-care (01) ==
LOC: ER 16:07
DX: M25.562 Pain in left knee (principal); M25.561 Pain in right knee; F32.9 Major depressive disorder, single episode, unspecified; F20.9 Schizophrenia, unspecified; I25.10 Atherosclerotic heart disease of native coronary artery without angina pectoris; I10 Essential (primary) hypertension; E78.5 Hyperlipidemia, unspecified; E03.9 Hypothyroidism, unspecified; Z79.899 Other long term (current) drug therapy
CPT/HCPCS: 72170; A4663

== ENCOUNTER 2019-05-21 17:18 | Inpatient (IN) | payer MEDICARE, OTHER ==
[~2019-05-21] VITALS: Ht 157.5 cm; Wt 51.3 kg
[2019-05-21] MEDS ORDERED: NA P133E RC (17:51)
[2019-05-21] MEDS ORDERED: MULT-213 PO (17:51)
[2019-05-21] MEDS ORDERED: FAMO20TA8 PO (17:51)
[2019-05-21] MEDS ORDERED: QUET25TA PO (17:51)
[2019-05-21] MEDS ORDERED: MAGN400O6 PO (17:51)
[2019-05-21] MEDS ORDERED: ASPI81TA31 PO (17:51)
[2019-05-21] MEDS ORDERED: METO25TA6 PO (17:51)
[2019-05-21] MEDS ORDERED: LOSA50TA39 PO (17:51)
[2019-05-21] MEDS ORDERED: ATOR10TA PO (17:51)
[2019-05-21] MEDS ORDERED: SERT100T PO (17:51)
[2019-05-21] MEDS ORDERED: MELA3TAB PO (17:51)
[2019-05-21] MEDS ORDERED: HYDROMORPHONE 1 MG/1 ML DISP.SYRIN IV ONE (18:30)
[2019-05-21] MEDS ORDERED: IV NORMAL SALINE 1000 ML BAG IV ONE (18:30)
[2019-05-21] MEDS ORDERED: ONDANSETRON 4 MG/2 ML VIAL IV ONE (18:30)
[2019-05-21 18:38] LABS: BASOPHILS # (AUTO) 0.1 K/uL (0.0-8.0); BASOPHILS % (AUTO) 0.5 % (0.0-2.0); EOSINOPHILS # (AUTO) 0.5 K/uL (0.0-0.7); EOSINOPHILS % (AUTO) 4.1 % (0.0-7.0); HEMATOCRIT 40.2 % (31.2-41.9); HEMOGLOBIN 13.1 g/dL (10.9-14.3); LYMPHOCYTES # (AUTO) 1.9 K/uL (20.0-40.0); LYMPHOCYTES % (AUTO) 16.5 % (20.5-51.5); MEAN CORPUSCULAR HGB CONC 33 g/dL (32.3-35.6); MEAN CORPUSCULAR VOLUME 91.9 fL (75.5-95.3); MONOCYTES # (AUTO) 0.7 K/uL (2.0-10.0); MONOCYTES % (AUTO) 6.3 % (0.0-11.0); NEUTROPHILS # (AUTO) 8.5 K/uL (1.8-8.9); NEUTROPHILS % (AUTO) 72.6 % (38.5-71.5); PLATELET COUNT (AUTO) 218 K/uL (179-408); RED BLOOD CELL COUNT(AUTO) 4.38 MIL/uL (3.63-4.92); WHITE BLOOD COUNT (AUTO) 11.7 K/uL (3.8-11.8)
[2019-05-21] MEDS ORDERED: HYDROMORPHONE 1 MG/1 ML DISP.SYRIN ONE (18:45)
[2019-05-21] MEDS ORDERED: ONDANSETRON 4 MG/2 ML VIAL ONE (18:45)
--- NOTE | 2019-05-21 19:00 | NUR ---
ASSOCIATE ACCOUNT EXECUTIVE AT BEDSIDE PT IS AWAKE ON SEMI WALKER'S G22 R FOREARM INTACT IVF INFUSING WELL +CAM BOOT TO L ANKLE IN PLACE FROM OUTGOING DAY SHIFT RN PT NAD SIDERAILSX2 UP BED AT LOWEST POSITION
[2019-05-21 19:12] LABS: CARBON DIOXIDE 28 mmol/L (21-32); CHLORIDE 104 mmol/L (98-107); CREATININE 0.8 mg/dL (0.6-1.3); GLUCOSE 140 mg/dL (74-106); UREA NITROGEN, BLOOD 28 mg/dL (7-18)
[2019-05-21 19:17] LABS: ALANINE AMINOTRANSFERASE 25 U/L (14-59); ALKALINE PHOSPHATASE 93 U/L (50-136); BILIRUBIN,DIRECT < 0.1 mg/dL (0.0-0.2); BILIRUBIN,TOTAL 0.4 mg/dL (0.2-1.0); LIPASE 111 U/L (73-393); TOTAL PROTEIN, SERUM 7.5 g/dL (6.4-8.2)
--- NOTE | 2019-05-21 19:20 | NUR ---
[facility] paged Heather for panel call. Awaiting call back.
[2019-05-21] MEDS ORDERED: LORAZEPAM 2 MG/1 ML VIAL ONE (19:28)
[2019-05-21] MEDS ORDERED: LORAZEPAM 2 MG/1 ML VIAL IV ONE (19:30)
[2019-05-21 19:42] LABS: ASPARTATE AMINOTRANSFERASE 51 U/L (15-37)
--- NOTE | 2019-05-21 19:48 | NUR ---
[phone]
--- NOTE | 2019-05-21 19:54 | NUR ---
VIV CALLED BACK ON THE PHONE W/ JULIANA CABALLERO PT WILL BE ADMITTED MED SURG DX: L ANKLE FX
--- NOTE | 2019-05-21 20:04 | NUR ---
CALL FOR BED DONE PT WILL BE ADMITTED TO MS ROOM 316 ANCA RN WILL CALL BACK IN 5MINS
--- NOTE | 2019-05-21 20:17 | NUR ---
HAND OFF AND SBAR GIVEN TO ANCA DAVENPORT PT WILL BE ADMITTED UNDER DR NAM DX L ANKLE FX MEDSURG RM 316
--- NOTE | 2019-05-21 20:40 | NUR ---
PT TRANSPORTED VIA GURNEY ACC BY KAIN GIBBSX2 UP BED AT LOWEST POSITION
--- NOTE | 2019-05-21 21:00 | NUR ---
patient received from ER [facility]. ID band on. IV patent and intact. no signs of acute distress. discharge paperwork completed by CUTTER HELPER and filed. safety and comfort measures provided.
--- NOTE | 2019-05-21 21:30 | NUR ---
received orders from Dr. Bowden. will place orders and complete admissions process.
[2019-05-21 22:00] VITALS: BP 149/62
--- NOTE | 2019-05-21 22:00 | NUR ---
patient requested sleeping medication from Dr. Bowden. orders received to administer Ambien 5mg prn hs. will administer.
[2019-05-21] MEDS ORDERED: LOSARTAN POTASSIUM 50 MG TABLET PO SCH (22:45)
[2019-05-21] MEDS: SENNOSIDES 1 TABLET PO SCH (23:05)
[2019-05-21] MEDS: ATORVASTATIN 10 MG TABLET PO SCH (23:05)
[2019-05-21] MEDS: HYDROCODONE/APAP 5-325MG TABLET PO PRN (23:05)
[2019-05-21] MEDS: MELATONIN 3 MG TABLET PO SCH (23:07)
[2019-05-22] MEDS: ZOLPIDEM 5 MG TABLET PO PRN ×2 (00:06→20:21)
[2019-05-22 04:00] VITALS: BP 138/60
--- NOTE | 2019-05-22 05:15 | NUR ---
patient slept intermittently. no signs of acute distress and v/s stable throughout shift. safety and comfort measures provided at all times. will continue to monitor and endorse to am nurse.
--- NOTE | 2019-05-22 06:36 | NUR ---
patient refused photos of her wound on the left leg and did not want me to touch the gauze taped around the wound as well.
[2019-05-22 07:04] LABS: BASOPHILS # (AUTO) 0.1 K/uL (0.0-8.0); BASOPHILS % (AUTO) 0.8 % (0.0-2.0); EOSINOPHILS # (AUTO) 0.6 K/uL (0.0-0.7); EOSINOPHILS % (AUTO) 5.9 % (0.0-7.0); HEMOGLOBIN 11.7 g/dL (10.9-14.3); LYMPHOCYTES # (AUTO) 1.8 K/uL (20.0-40.0); MEAN CORPUSCULAR HEMOGLOBIN 30.8 uug (24.7-32.8); MEAN CORPUSCULAR HGB CONC 33 g/dL (32.3-35.6); MEAN CORPUSCULAR VOLUME 92.3 fL (75.5-95.3); MONOCYTES # (AUTO) 0.6 K/uL (2.0-10.0); MONOCYTES % (AUTO) 5.9 % (0.0-11.0); NEUTROPHILS # (AUTO) 6.6 K/uL (1.8-8.9); NEUTROPHILS % (AUTO) 68.4 % (38.5-71.5); PLATELET COUNT (AUTO) 162 K/uL (179-408); WHITE BLOOD COUNT (AUTO) 9.6 K/uL (3.8-11.8)
[2019-05-22] MEDS ORDERED: BISACODYL 10 MG SUPP.RECT RC PRN (07:15)
[2019-05-22] MEDS ORDERED: MAGNESIUM HYDROXIDE 30 ML LIQUID UDC PO PRN (07:15)
[2019-05-22] MEDS ORDERED: FLEET ENEMA 133 ML BOTTLE RC PRN (07:15)
[2019-05-22 07:22] LABS: ALANINE AMINOTRANSFERASE 19 U/L (14-59); ALKALINE PHOSPHATASE 75 U/L (50-136); ASPARTATE AMINOTRANSFERASE 26 U/L (15-37); BILIRUBIN,TOTAL 0.3 mg/dL (0.2-1.0); CARBON DIOXIDE 27 mmol/L (21-32); CHLORIDE 106 mmol/L (98-107); CREATININE 0.8 mg/dL (0.6-1.3); GLUCOSE 95 mg/dL (74-106); POTASSIUM 4.2 mmol/L (3.5-5.1); TOTAL PROTEIN, SERUM 6.6 g/dL (6.4-8.2); UREA NITROGEN, BLOOD 26 mg/dL (7-18)
[2019-05-22] MEDS: MULTIVIT, IRON, MIN NO. 8, FA TABLET PO SCH (08:25)
[2019-05-22] MEDS: DOCUSATE SODIUM 100 MG CAPSULE PO SCH ×2 (08:25→17:01)
[2019-05-22] MEDS: SERTRALINE HCL 100 MG TABLET PO SCH (08:25)
[2019-05-22] MEDS: FAMOTIDINE 20 MG TABLET PO SCH (08:26)
[2019-05-22] MEDS: METOPROLOL TARTRATE 25 MG TABLET PO SCH ×2 (08:27→20:20)
[2019-05-22] MEDS: HYDROCODONE/APAP 5-325MG TABLET PO PRN ×2 (08:28→15:55)
[2019-05-22] MEDS: LOSARTAN POTASSIUM 50 MG TABLET PO SCH ×2 (08:28→20:20)
[2019-05-22] MEDS: LEVOTHYROXINE SODIUM 75 MCG TABLET PO SCH (08:30)
[2019-05-22] MEDS ORDERED: LOSARTAN POTASSIUM 50 MG TABLET PO SCH ×2 (09:00)
[2019-05-22 11:49] VITALS: BP 125/58
[2019-05-22 15:56] VITALS: BP 152/64
[2019-05-22] MEDS: MELATONIN 3 MG TABLET PO SCH (17:02)
[2019-05-22] MEDS: QUETIAPINE FUMARATE 25 MG TABLET PO SCH (17:02)
[2019-05-22] MEDS ORDERED: MELATONIN 3 MG TABLET PO SCH ×2 (18:00)
--- NOTE | 2019-05-22 19:04 | NUR ---
PATIENT HAS BEEN FRUSTRATED WITH THE FACT THAT SHE CANNOT GET A SLEEPING PILL THROUGHOUT THE DAY. PATIENT HAS BEEN MEDICATED NEEDED FOR PAIN. DR GRIER SAW PATIENT BUT WAS AWAITING CARDIAC CLEARANCE FOR SURGERY WHICH WAS DONE AT 6PM THIS EVENING BEFORE CONSENTING PATIENT FOR SURGERY. ALL NEEDS MET, BED IN LOW POSITOIN, SIDE RAILS UP X2, CALL LIGHT IN REACH.
--- NOTE | 2019-05-22 19:30 | NUR ---
Received patient in bed awake A&Ox3. No complaints of pain at this time. Heplock on R FA intact and patent. Safety measures observed. Call light within reach
[2019-05-22 20:18] VITALS: BP 150/60
[2019-05-22] MEDS: SENNOSIDES 1 TABLET PO SCH (20:20)
[2019-05-22] MEDS: ATORVASTATIN 10 MG TABLET PO SCH (20:21)
[2019-05-22] MEDS ORDERED: ATORVASTATIN 10 MG TABLET PO SCH ×2 (21:00)
[2019-05-22] MEDS ORDERED: SENNOSIDES 1 TABLET PO SCH ×2 (21:00)
[2019-05-23 05:35] VITALS: BP 142/56
[2019-05-23] MEDS: LEVOTHYROXINE SODIUM 75 MCG TABLET PO SCH (06:30)
--- NOTE | 2019-05-23 06:54 | NUR ---
Patient slept well throughout the night. No complaints of pain. All needs attended. Will endorse accordingly
[2019-05-23] MEDS: HYDROCODONE/APAP 5-325MG TABLET PO PRN ×2 (07:52→17:18)
--- NOTE | 2019-05-23 08:00 | NUR ---
Received patient awake in bed with complaints of L leg pain; PRN Arimo administered. Tolerated. Patient is AAOx4. No SOB noted. IV on R FA intact and patent. Safety measures implemented. Call light within reach. Will continue to monitor.
[2019-05-23] MEDS: METOPROLOL TARTRATE 25 MG TABLET PO SCH ×2 (09:10→20:23)
[2019-05-23] MEDS: LOSARTAN POTASSIUM 50 MG TABLET PO SCH ×2 (09:10→20:23)
[2019-05-23] MEDS: MULTIVIT, IRON, MIN NO. 8, FA TABLET PO SCH (09:10)
[2019-05-23] MEDS: FAMOTIDINE 20 MG TABLET PO SCH (09:10)
[2019-05-23] MEDS: SERTRALINE HCL 100 MG TABLET PO SCH (09:10)
[2019-05-23] MEDS: DOCUSATE SODIUM 100 MG CAPSULE PO SCH ×2 (09:10→17:19)
[2019-05-23 11:55] VITALS: BP 144/57
[2019-05-23 16:11] VITALS: BP 135/56
[2019-05-23] MEDS: MELATONIN 3 MG TABLET PO SCH (17:18)
[2019-05-23] MEDS: QUETIAPINE FUMARATE 25 MG TABLET PO SCH (17:19)
--- NOTE | 2019-05-23 18:11 | NUR ---
Left ankle ORIF scheduled for tomorrow at 0700. NPO after midnight. No s/s of acute distress at this time. Patient verbalized left leg pain relieved by PRN [place]ac. Comfort provided at all times. All needs met. Will endorse accordingly.
--- NOTE | 2019-05-23 20:00 | NUR ---
Patient received into care awake in bed, watching television. Patient is alert and oriented x3 with no complaints of pain at this time. Patient is requesting to have her prescribed sleeping medication now so that she can sleep well before her scheduled surgery tomorrow. IV site is patent and intact. Patient is aware that she will be NPO after midnight due to scheduled surgery tomorrow. Signed informed consent is in patient's chart. All safety and fall precaution measures are in place. Call light and personal items are within reach at all times. Will continue to monitor.
[2019-05-23] MEDS: ATORVASTATIN 10 MG TABLET PO SCH (20:23)
[2019-05-23] MEDS: ZOLPIDEM 5 MG TABLET PO PRN (20:23)
[2019-05-23] MEDS: SENNOSIDES 1 TABLET PO SCH (20:25)
[2019-05-23 20:44] VITALS: BP 148/70
[2019-05-24] VITALS (7 sets, daily range): BP systolic 134–182; BP diastolic 52–69
[2019-05-24] MEDS: HYDROCODONE/APAP 5-325MG TABLET PO PRN (02:28)
[2019-05-24] MEDS ORDERED: BUPIVACAINE 0.25% 30 ML VIAL ONE (06:43)
[2019-05-24] MEDS: LEVOTHYROXINE SODIUM 75 MCG TABLET PO SCH (06:43)
--- NOTE | 2019-05-24 06:54 | NUR ---
Patient slept intermittently throughout night with complaints of pain addressed with prescribed analgesics. All prescribed PM medications provided as ordered and tolerated well, with no adverse side effects noted or observed. Patient has been NPO since midnight due to planned left ankle ORIF scheduled for 0730h. Signed consent in patient's file and preop checklist completed. All safety and fall precaution measures remain in place. Call light and personal items are within reach at all times.
[2019-05-24] MEDS ORDERED: POLYMYXIN B SULFATE 500,000 UNITS, BACITRACIN 50,000 UNITS, NORMAL SALINE 20 ML MC ONE ×3 (07:00)
[2019-05-24] MEDS ORDERED: MIDAZOLAM HCL 2 MG/2 ML VIAL ONE (07:05)
[2019-05-24] MEDS ORDERED: FENTANYL CITRATE 100 MCG/2 ML AMPUL ONE ×2 (07:05→09:01)
--- NOTE | 2019-05-24 07:20 | NUR ---
PATIENT WAS ALREADY PICKED UP FOR SURGERY DID NOT SEE PATIENT SO UNABLE TO ACCESS HER AT THIS TIME.
[2019-05-24] MEDS: DOCUSATE SODIUM 100 MG CAPSULE PO SCH ×2 (08:46→16:37)
[2019-05-24] MEDS: SERTRALINE HCL 100 MG TABLET PO SCH ×2 (08:47→10:35)
[2019-05-24] MEDS: FAMOTIDINE 20 MG TABLET PO SCH ×2 (08:47→10:35)
[2019-05-24] MEDS: METOPROLOL TARTRATE 25 MG TABLET PO SCH ×2 (08:47→10:40)
[2019-05-24] MEDS: LOSARTAN POTASSIUM 50 MG TABLET PO SCH ×2 (08:47→10:38)
[2019-05-24] MEDS: MULTIVIT, IRON, MIN NO. 8, FA TABLET PO SCH (08:47)
[2019-05-24] MEDS ORDERED: LABETALOL HCL 100 MG/20 ML VIAL ONE (08:54)
[2019-05-24] MEDS ORDERED: diphenhydrAMINE 50 MG/1 ML VIAL ONE (09:21)
[2019-05-24] MEDS: HYDROCODONE/APAP 10-325 MG TABLET PO PRN (10:36)
--- NOTE | 2019-05-24 11:00 | NUR ---
PATIENT RETURNED FROM OR AWAKE ALERT AND AWARE WITH O2 AT 2L/M BY NASAL CANULA WITH NO SOB AT THIS TIME.PATIENT IS FORGETFUL AT THIS TIME SHE WANTS FOOD SO ANA ROSA CALLED AND ORDERED EARLY LUNCH FOR HER BLOOD PRESSURE AT THIS TIME IS 181/70 SO AM BLOOD PRESSURE GIVEN AT THIS TIME WILL OBSERVE BLOOD PRESSURE.ALSO PREFERED NORCO SO MEDICATED ORDERED WILL OBSERVE.
[2019-05-24] MEDS: POTASSIUM CHLORIDE 20 MEQ in IV D5 1/2 NS 1000 ML 1,000 ML IV PRN ×2 (11:11→23:52)
[2019-05-24] MEDS: MORPHINE SULFATE 4 MG/1 ML DISP.SYRIN IV PRN ×3 (13:29→20:36)
[2019-05-24] MEDS ORDERED: SEVOFLURANE 250 ML BOTTLE IH ONE (13:59)
[2019-05-24] MEDS ORDERED: PROPOFOL 200 MG/20 ML BOTTLE IV ONE (13:59)
[2019-05-24] MEDS ORDERED: ONDANSETRON 4 MG/2 ML VIAL IV ONE (13:59)
[2019-05-24] MEDS ORDERED: LIDOCAINE HCL-MPF 1% 5 ML VIAL IJ ONE (13:59)
[2019-05-24] MEDS ORDERED: CEFAZOLIN 1 G VIAL IM ONE (13:59)
[2019-05-24] MEDS: CEFAZOLIN 1 G in IV DEXTROSE 5% 50 ML IV SCH ×2 (16:20→23:42)
--- NOTE | 2019-05-24 16:50 | NUR ---
PATIENT IS ASKING FOR ANTI ITCH MEDICATION CALLED AND SPOKE WITH DR ROE WITH NEW ORDERS AND NOTED.
[2019-05-24] MEDS: diphenhydrAMINE 25 MG CAP PO PRN (17:11)
[2019-05-24] MEDS: MELATONIN 3 MG TABLET PO SCH (17:12)
[2019-05-24] MEDS: QUETIAPINE FUMARATE 25 MG TABLET PO SCH (17:13)
--- NOTE | 2019-05-24 18:02 | NUR ---
RESTING AT THIS TIME WITH NO C/O AT THIS TIME CIRCULATION REMAINS ADEQUATE SAMANTHA HER LEFT LOWER EXT ABLE TO WIGGLE MADE COMFORTABLE.
--- NOTE | 2019-05-24 19:30 | NUR ---
patient received lying in bed and confused. no signs of acute distress and v/s stable at this time. will continue plan of care.
[2019-05-24] MEDS: SENNOSIDES 1 TABLET PO SCH (20:36)
[2019-05-24] MEDS: ATORVASTATIN 10 MG TABLET PO SCH (20:36)
[2019-05-24] MEDS: ZOLPIDEM 5 MG TABLET PO PRN (20:36)
[2019-05-24] MEDS ORDERED: ESCITALOPRAM OXALATE 10 MG TABLET PO ONE (23:45)
[2019-05-25] MEDS: MORPHINE SULFATE 4 MG/1 ML DISP.SYRIN IV PRN ×4 (02:14→15:15)
[2019-05-25] MEDS: diphenhydrAMINE 25 MG CAP PO PRN (02:18)
[2019-05-25 04:28] VITALS: BP 155/81
--- NOTE | 2019-05-25 05:34 | NUR ---
patient slept intermittently. v/s stable and no signs of acute distress noted throughout shift. safety and comfort measures provided at all times. c/o of insomnia, Ambien administered. morphine administered 3x on my shift for c/o of pain. will continue plan of care and endorse care to morning nurse.
[2019-05-25] MEDS: LEVOTHYROXINE SODIUM 75 MCG TABLET PO SCH (06:35)
--- NOTE | 2019-05-25 06:57 | NUR ---
Patient requested pain medication x3 . Patient calm and comfortable through out shift. Patient call light with in reach. Report given to oncoming nurse.
--- NOTE | 2019-05-25 08:30 | NUR ---
Patient calm and comfortable resting in bed with no signs of distress; patient will continue to be monitored.
[2019-05-25] MEDS: MULTIVIT, IRON, MIN NO. 8, FA TABLET PO SCH (09:51)
[2019-05-25] MEDS: ASPIRIN 81 MG TAB.CHEW PO SCH (09:51)
[2019-05-25] MEDS: LOSARTAN POTASSIUM 50 MG TABLET PO SCH ×2 (09:53→20:01)
[2019-05-25] MEDS: DOCUSATE SODIUM 100 MG CAPSULE PO SCH ×2 (09:53→18:35)
[2019-05-25] MEDS: METOPROLOL TARTRATE 25 MG TABLET PO SCH ×2 (09:54→20:01)
[2019-05-25 11:47] VITALS: BP 144/64
[2019-05-25] MEDS: POTASSIUM CHLORIDE 20 MEQ in IV D5 1/2 NS 1000 ML 1,000 ML IV PRN (15:16)
[2019-05-25 16:10] VITALS: BP 129/57
[2019-05-25] MEDS: MELATONIN 3 MG TABLET PO SCH (18:00)
[2019-05-25] MEDS: QUETIAPINE FUMARATE 25 MG TABLET PO SCH (18:35)
[2019-05-25] MEDS: HYDROCODONE/APAP 10-325 MG TABLET PO PRN (18:35)
--- NOTE | 2019-05-25 19:30 | NUR ---
received patient lying in bed and resting comfortably in bed. no signs of acute distress and v/s stable at this time. denies pain at this time. will continue plan of care and continue to monitor on my shift.
[2019-05-25] MEDS: SENNOSIDES 1 TABLET PO SCH (20:01)
[2019-05-25] MEDS: ATORVASTATIN 10 MG TABLET PO SCH (20:01)
[2019-05-25 20:05] VITALS: BP 146/60
--- NOTE | 2019-05-25 22:12 | NUR ---
patients low grade fever down to 98.1 at this time.
[2019-05-26] MEDS: HYDROCODONE/APAP 10-325 MG TABLET PO PRN (03:58)
[2019-05-26] MEDS: diphenhydrAMINE 25 MG CAP PO PRN (04:04)
[2019-05-26] MEDS: POTASSIUM CHLORIDE 20 MEQ in IV D5 1/2 NS 1000 ML 1,000 ML IV PRN (04:48)
--- NOTE | 2019-05-26 05:25 | NUR ---
patient received lying in bed. no signs of acute distress and v/s stable throughout shift. safety and comfort measures provided at all times. nursing supervisor sleeping bag department provided 20MEQ IVF bag and administered to patient during shift. Left leg dressing intact. c/o of pain [place] administered once. will continue to monitor and endorse shift accordingly.
[2019-05-26 05:41] VITALS: BP 154/62
[2019-05-26] MEDS: LEVOTHYROXINE SODIUM 75 MCG TABLET PO SCH (06:30)
--- NOTE | 2019-05-26 07:30 | NUR ---
Patient calm and comfortable with no signs of distress; patient will continue to be monitored
[2019-05-26] MEDS: MULTIVIT, IRON, MIN NO. 8, FA TABLET PO SCH (08:26)
[2019-05-26] MEDS: ASPIRIN 81 MG TAB.CHEW PO SCH (08:26)
[2019-05-26] MEDS: FAMOTIDINE 20 MG TABLET PO SCH (08:27)
[2019-05-26] MEDS: DOCUSATE SODIUM 100 MG CAPSULE PO SCH (08:27)
[2019-05-26] MEDS: LOSARTAN POTASSIUM 50 MG TABLET PO SCH (08:27)
[2019-05-26] MEDS: METOPROLOL TARTRATE 25 MG TABLET PO SCH (08:28)
[2019-05-26] MEDS: SERTRALINE HCL 100 MG TABLET PO SCH (08:28)
[2019-05-26] MEDS: MORPHINE SULFATE 4 MG/1 ML DISP.SYRIN IV PRN ×2 (08:29→11:05)
[2019-05-26 11:52] VITALS: BP 138/50
--- NOTE | 2019-05-26 14:00 | NUR ---
Patient picked up by ambulance ; patient in stable condition ;patient educated on diagnosis ;patient belongings and valuables sent with patient. Patient stable through shift given morphine for pain management. Report given to [facility].
[2019-05-26 16:00] VITALS: BP 123/43
== END 2019-05-26 14:00 | DRG 494 ==
LOC: ER 17:23 → MEDSURG3 20:31
PROVIDERS: ADMIT Internal Medicine; ATTEND Internal Medicine
PROC: 0QSK04Z Reposition Left Fibula with Internal Fixation Device, Open Approach (ICD-10-PCS; principal; 2019-05-24)
PROC: 0QSH04Z Reposition Left Tibia with Internal Fixation Device, Open Approach (ICD-10-PCS; 2019-05-24)
DX: S82.845A Nondisplaced bimalleolar fracture of left lower leg, initial encounter for closed fracture (principal); X50.1XXA Overexertion from prolonged static or awkward postures, initial encounter; Y92.129 Unspecified place in nursing home as the place of occurrence of the external cause; E03.9 Hypothyroidism, unspecified; G47.00 Insomnia, unspecified; G30.9 Alzheimer's disease, unspecified; F02.80 Dementia in other diseases classified elsewhere, unspecified severity, without behavioral disturbance, psychotic disturbance, mood disturbance, and anxiety; I25.10 Atherosclerotic heart disease of native coronary artery without angina pectoris; Z95.5 Presence of coronary angioplasty implant and graft; F25.9 Schizoaffective disorder, unspecified; F32.9 Major depressive disorder, single episode, unspecified; M17.12 Unilateral primary osteoarthritis, left knee; I25.2 Old myocardial infarction; I10 Essential (primary) hypertension; F51.04 Psychophysiologic insomnia
CPT/HCPCS: 36415; 70030-TC; 71045; 73610; 83690; 85025; 85730; 93005; 93307; A4663; G0378; J0690; J1170; J1200; J2060; J2250; J2270; J2405; J3010; J3480; J3490; J7030; J7060; Q0163

== ENCOUNTER 2019-05-29 13:32 | Inpatient (IN) | payer MEDICARE, OTHER ==
[~2019-05-29] VITALS: Ht 157.5 cm; Wt 52.2 kg
[~2019-05-29 13:32] MED LIST changes: +ASPI81TA31 PO; +ATOR10TA PO; -DIPH25CA83 PO; +FAMO20TA8 PO; -HYDR-3326 PO; -LACT10SO PO; +LOSA50TA39 PO; +MAGN400O6 PO; +MELA3TAB PO; +METO25TA6 PO; +MULT-213 PO; +NA P133E RC; +QUET25TA PO; +SERT100T PO
[2019-05-29] MEDS ORDERED: TRAM50TA2 PO (13:46)
[2019-05-29] MEDS ORDERED: IV NORMAL SALINE 1000 ML BAG IV ONE (14:00)
[2019-05-29 14:35] LABS: *BILIRUBIN,URIN NEGATIVE (NEGATIVE); *BLOOD, URINE NEGATIVE (NEGATIVE); *CLARITY,URINE CLEAR (CLEAR); *COLOR,URINE YELLOW (YELLOW); *KETONES,URINE NEGATIVE (NEGATIVE); *UROBILINOGEN,URINE 0.2 E.U./dl (NORMAL); LEUKOCYTE ESTERASE ,URINE NEGATIVE (NEGATIVE); NITRITE, URINE NEGATIVE (NEGATIVE); UGLUCOSE NEGATIVE (NEGATIVE)
[2019-05-29 15:11] LABS: BASOPHILS # (AUTO) 0.1 K/uL (0.0-8.0); BASOPHILS % (AUTO) 0.6 % (0.0-2.0); EOSINOPHILS # (AUTO) 0.3 K/uL (0.0-0.7); EOSINOPHILS % (AUTO) 2.5 % (0.0-7.0); HEMATOCRIT 35.4 % (31.2-41.9); HEMOGLOBIN 11.9 g/dL (10.9-14.3); LYMPHOCYTES # (AUTO) 1.6 K/uL (20.0-40.0); MEAN CORPUSCULAR HEMOGLOBIN 30.4 uug (24.7-32.8); MEAN CORPUSCULAR HGB CONC 34 g/dL (32.3-35.6); MEAN CORPUSCULAR VOLUME 90.6 fL (75.5-95.3); MONOCYTES # (AUTO) 0.6 K/uL (2.0-10.0); MONOCYTES % (AUTO) 6.2 % (0.0-11.0); NEUTROPHILS # (AUTO) 7.4 K/uL (1.8-8.9); NEUTROPHILS % (AUTO) 74.7 % (38.5-71.5); PLATELET COUNT (AUTO) 246 K/uL (179-408); RED BLOOD CELL COUNT(AUTO) 3.91 MIL/uL (3.63-4.92); WHITE BLOOD COUNT (AUTO) 9.9 K/uL (3.8-11.8)
[2019-05-29 15:19] LABS: CREATININE 0.6 mg/dL (0.6-1.3); POTASSIUM 3.8 mmol/L (3.5-5.1)
[2019-05-29 15:30] LABS: BILIRUBIN,DIRECT 0.1 mg/dL (0.0-0.2); BILIRUBIN,TOTAL 0.4 mg/dL (0.2-1.0); TOTAL PROTEIN, SERUM 7.2 g/dL (6.4-8.2)
[2019-05-29 15:47] LABS: THYROID STIMULATING HORMONE 33.473 mIU/mL (0.358-3.740)
[2019-05-29 17:40] VITALS: BP 167/90
[2019-05-29 20:10] VITALS: BP 169/77
[2019-05-29] MEDS ORDERED: TRAMADOL HCL 50 MG TABLET PO SCH (20:15)
[2019-05-29] MEDS: ATORVASTATIN 10 MG TABLET PO SCH (21:13)
[2019-05-29] MEDS: SENNOSIDES 1 TABLET PO SCH (21:13)
[2019-05-29] MEDS: LOSARTAN POTASSIUM 50 MG TABLET PO SCH (21:13)
[2019-05-29] MEDS: QUETIAPINE FUMARATE 25 MG TABLET PO SCH (21:13)
[2019-05-29] MEDS: MELATONIN 3 MG TABLET PO SCH (21:15)
[2019-05-29] MEDS: METOPROLOL TARTRATE 25 MG TABLET PO SCH (21:15)
[2019-05-30 00:24] VITALS: BP 121/79
[2019-05-30 05:07] VITALS: BP 153/73
[2019-05-30] MEDS ORDERED: TRAMADOL HCL 50 MG TABLET PO PRN (07:00)
[2019-05-30] MEDS ORDERED: FLEET ENEMA 133 ML BOTTLE RC PRN (07:00)
[2019-05-30] MEDS ORDERED: BISACODYL 10 MG SUPP.RECT RC PRN (07:00)
[2019-05-30] MEDS ORDERED: MAGNESIUM HYDROXIDE 30 ML LIQUID UDC PO PRN (07:00)
[2019-05-30] MEDS ORDERED: LEVOTHYROXINE SODIUM 75 MCG TABLET PO SCH (07:00)
[2019-05-30] MEDS ORDERED: LOSARTAN POTASSIUM 50 MG TABLET PO SCH (09:00)
[2019-05-30] MEDS ORDERED: METOPROLOL TARTRATE 25 MG TABLET PO SCH (09:00)
[2019-05-30] MEDS: SERTRALINE HCL 100 MG TABLET PO SCH (09:09)
[2019-05-30] MEDS: FAMOTIDINE 20 MG TABLET PO SCH (09:10)
[2019-05-30] MEDS: MULTIVIT, IRON, MIN NO. 8, FA TABLET PO SCH (09:10)
[2019-05-30] MEDS: ASPIRIN 81 MG TAB.CHEW PO SCH (09:10)
[2019-05-30] MEDS: DOCUSATE SODIUM 100 MG CAPSULE PO SCH ×2 (09:10→16:53)
[2019-05-30] MEDS: LOSARTAN POTASSIUM 50 MG TABLET PO SCH ×2 (09:11→21:25)
[2019-05-30] MEDS: METOPROLOL TARTRATE 25 MG TABLET PO SCH ×2 (09:11→21:25)
[2019-05-30 09:21] LABS: BASOPHILS # (AUTO) 0.1 K/uL (0.0-8.0); EOSINOPHILS # (AUTO) 0.5 K/uL (0.0-0.7); EOSINOPHILS % (AUTO) 6.8 % (0.0-7.0); HEMATOCRIT 34.4 % (31.2-41.9); HEMOGLOBIN 11.3 g/dL (10.9-14.3); LYMPHOCYTES # (AUTO) 1.5 K/uL (20.0-40.0); LYMPHOCYTES % (AUTO) 20.5 % (20.5-51.5); MEAN CORPUSCULAR HGB CONC 33 g/dL (32.3-35.6); MEAN CORPUSCULAR VOLUME 90.9 fL (75.5-95.3); MONOCYTES # (AUTO) 0.5 K/uL (2.0-10.0); MONOCYTES % (AUTO) 6.9 % (0.0-11.0); NEUTROPHILS # (AUTO) 4.9 K/uL (1.8-8.9); NEUTROPHILS % (AUTO) 64.8 % (38.5-71.5); PLATELET COUNT (AUTO) 231 K/uL (179-408); RED BLOOD CELL COUNT(AUTO) 3.78 MIL/uL (3.63-4.92); WHITE BLOOD COUNT (AUTO) 7.5 K/uL (3.8-11.8)
[2019-05-30 10:05] LABS: CREATININE 0.7 mg/dL (0.6-1.3); MAGNESIUM 1.8 mg/dL (1.8-2.4); PHOSPHOROUS 3.3 mg/dL (2.5-4.9)
[2019-05-30 11:45] VITALS: BP 147/63
[2019-05-30 16:10] VITALS: BP 176/78
[2019-05-30] MEDS ORDERED: CLONIDINE HCL 0.1 MG TABLET PO PRN (17:45)
[2019-05-30] MEDS: hydrALAZINE HCL 50 MG TABLET PO PRN (17:58)
[2019-05-30] MEDS ORDERED: QUETIAPINE FUMARATE 25 MG TABLET PO SCH (18:00)
[2019-05-30] MEDS ORDERED: MELATONIN 3 MG TABLET PO SCH (18:00)
[2019-05-30 20:00] VITALS: BP 156/69
[2019-05-30] MEDS ORDERED: ATORVASTATIN 10 MG TABLET PO SCH (21:00)
[2019-05-30] MEDS ORDERED: SENNOSIDES 1 TABLET PO SCH (21:00)
[2019-05-30] MEDS: ATORVASTATIN 10 MG TABLET PO SCH (21:26)
[2019-05-30] MEDS: SENNOSIDES 1 TABLET PO SCH (21:26)
[2019-05-30] MEDS: QUETIAPINE FUMARATE 25 MG TABLET PO SCH (21:26)
[2019-05-30] MEDS: TRAMADOL HCL 50 MG TABLET PO PRN (21:27)
[2019-05-30] MEDS: MELATONIN 3 MG TABLET PO SCH (21:27)
[2019-05-31] VITALS: BP 140/68
[2019-05-31 04:00] VITALS: BP 177/66
[2019-05-31] MEDS: LEVOTHYROXINE SODIUM 100 MCG TABLET PO SCH (05:44)
[2019-05-31] MEDS ORDERED: LEVOTHYROXINE SODIUM 75 MCG TABLET PO SCH (06:00)
[2019-05-31 06:45] LABS: ALANINE AMINOTRANSFERASE 23 U/L (14-59); ALKALINE PHOSPHATASE 83 U/L (50-136); ASPARTATE AMINOTRANSFERASE 33 U/L (15-37); BILIRUBIN,TOTAL 0.4 mg/dL (0.2-1.0); CARBON DIOXIDE 27 mmol/L (21-32); CHLORIDE 105 mmol/L (98-107); CREATININE 0.7 mg/dL (0.6-1.3); GLUCOSE 89 mg/dL (74-106); MAGNESIUM 1.9 mg/dL (1.8-2.4); PHOSPHOROUS 3.1 mg/dL (2.5-4.9); POTASSIUM 3.7 mmol/L (3.5-5.1); TOTAL PROTEIN, SERUM 6.7 g/dL (6.4-8.2); UREA NITROGEN, BLOOD 23 mg/dL (7-18)
[2019-05-31 06:53] LABS: BASOPHILS # (AUTO) 0.1 K/uL (0.0-8.0); BASOPHILS % (AUTO) 1.4 % (0.0-2.0); EOSINOPHILS # (AUTO) 0.7 K/uL (0.0-0.7); EOSINOPHILS % (AUTO) 8.8 % (0.0-7.0); HEMATOCRIT 34.6 % (31.2-41.9); HEMOGLOBIN 11.3 g/dL (10.9-14.3); LYMPHOCYTES # (AUTO) 2.2 K/uL (20.0-40.0); LYMPHOCYTES % (AUTO) 26.2 % (20.5-51.5); MEAN CORPUSCULAR HEMOGLOBIN 29.8 uug (24.7-32.8); MEAN CORPUSCULAR HGB CONC 33 g/dL (32.3-35.6); MEAN CORPUSCULAR VOLUME 90.9 fL (75.5-95.3); MONOCYTES # (AUTO) 0.6 K/uL (2.0-10.0); MONOCYTES % (AUTO) 7.5 % (0.0-11.0); NEUTROPHILS # (AUTO) 4.7 K/uL (1.8-8.9); NEUTROPHILS % (AUTO) 56.1 % (38.5-71.5); PLATELET COUNT (AUTO) 232 K/uL (179-408); WHITE BLOOD COUNT (AUTO) 8.4 K/uL (3.8-11.8)
[2019-05-31] MEDS: DOCUSATE SODIUM 100 MG CAPSULE PO SCH ×2 (08:59→16:19)
[2019-05-31] MEDS: SERTRALINE HCL 100 MG TABLET PO SCH (09:00)
[2019-05-31] MEDS: LOSARTAN POTASSIUM 50 MG TABLET PO SCH ×2 (09:00→20:44)
[2019-05-31] MEDS: METOPROLOL TARTRATE 25 MG TABLET PO SCH ×2 (09:00→20:45)
[2019-05-31] MEDS: ASPIRIN 81 MG TAB.CHEW PO SCH (09:00)
[2019-05-31] MEDS: FAMOTIDINE 20 MG TABLET PO SCH (09:00)
[2019-05-31] MEDS: MULTIVIT, IRON, MIN NO. 8, FA TABLET PO SCH (09:00)
[2019-05-31 11:44] VITALS: BP 155/55
[2019-05-31 16:00] VITALS: BP 157/69
[2019-05-31 20:36] VITALS: BP 189/75
[2019-05-31] MEDS: MELATONIN 3 MG TABLET PO SCH (20:44)
[2019-05-31] MEDS: ATORVASTATIN 10 MG TABLET PO SCH (20:44)
[2019-05-31] MEDS: SENNOSIDES 1 TABLET PO SCH (20:45)
[2019-05-31] MEDS: QUETIAPINE FUMARATE 25 MG TABLET PO SCH (20:45)
[2019-05-31] MEDS: TRAMADOL HCL 50 MG TABLET PO PRN (20:45)
[2019-06-01] VITALS: BP 160/63
[2019-06-01] MEDS: hydrALAZINE HCL 50 MG TABLET PO PRN (00:53)
[2019-06-01 04:00] VITALS: BP 124/55
[2019-06-01] MEDS: LEVOTHYROXINE SODIUM 100 MCG TABLET PO SCH (06:36)
[2019-06-01] MEDS ORDERED: LEVO100T10 PO (08:01)
[2019-06-01] MEDS: LOSARTAN POTASSIUM 50 MG TABLET PO SCH (09:00)
[2019-06-01] MEDS: METOPROLOL TARTRATE 25 MG TABLET PO SCH (09:00)
[2019-06-01] MEDS: MULTIVIT, IRON, MIN NO. 8, FA TABLET PO SCH (09:51)
[2019-06-01] MEDS: ASPIRIN 81 MG TAB.CHEW PO SCH (09:52)
[2019-06-01] MEDS: SERTRALINE HCL 100 MG TABLET PO SCH (09:52)
[2019-06-01] MEDS: FAMOTIDINE 20 MG TABLET PO SCH (09:52)
[2019-06-01] MEDS: DOCUSATE SODIUM 100 MG CAPSULE PO SCH ×2 (09:54→16:22)
[2019-06-01] MEDS: TRAMADOL HCL 50 MG TABLET PO PRN (10:00)
[2019-06-01 11:19] VITALS: BP 119/49
[2019-06-01 15:16] VITALS: BP 137/66
== END 2019-06-01 17:08 | DRG 643 ==
LOC: ER 13:32 → TELE-TD3 16:12 → TELE3 16:52
PROVIDERS: ADMIT Internal Medicine Nephrology; ATTEND Internal Medicine
DX: E03.9 Hypothyroidism, unspecified (principal); G92 Toxic encephalopathy; F33.2 Major depressive disorder, recurrent severe without psychotic features; G30.9 Alzheimer's disease, unspecified; F02.80 Dementia in other diseases classified elsewhere, unspecified severity, without behavioral disturbance, psychotic disturbance, mood disturbance, and anxiety; I25.2 Old myocardial infarction; F25.9 Schizoaffective disorder, unspecified; S82.842D Displaced bimalleolar fracture of left lower leg, subsequent encounter for closed fracture with routine healing; X58.XXXD Exposure to other specified factors, subsequent encounter; I25.10 Atherosclerotic heart disease of native coronary artery without angina pectoris; Z86.73 Personal history of transient ischemic attack (TIA), and cerebral infarction without residual deficits; B02.9 Zoster without complications; I10 Essential (primary) hypertension
CPT/HCPCS: 36415; 70030-TC; 70450; 71045; 83605; 83735; 84100; 84443; 85025; 85730; 87040; 93005; A4663; G0378; J7030

== ENCOUNTER 2019-06-11 19:26 | Inpatient (IN) | payer MEDICARE, OTHER ==
[~2019-06-11] VITALS: Ht 157.5 cm; Wt 46.7 kg
[~2019-06-11 19:26] MED LIST changes: +LEVO100T10 PO; -LEVO75TA7 PO; -MELA3TAB PO; +MELA3TAB63 PO
[2019-06-11] MEDS ORDERED: IV NORMAL SALINE 1000 ML BAG IV ONE (19:45)
[2019-06-11] MEDS ORDERED: HYDR-3326 PO (19:54)
[2019-06-11] MEDS ORDERED: MELA5TAB PO (19:54)
[2019-06-11] MEDS ORDERED: GABA-534 PO (19:54)
[2019-06-11] MEDS ORDERED: NALO4SPR NS (19:54)
[2019-06-11] MEDS ORDERED: VANCOMYCIN IV 1,000 MG in IV DEXTROSE 5% 250 ML IV ONE (20:00)
[2019-06-11] MEDS ORDERED: PIPERACILLIN SODIUM/TAZOBACTAM 3.375 G in IV DEXTROSE 5% 50 ML IV ONE (20:00)
--- NOTE | 2019-06-11 20:02 | NUR ---
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
[2019-06-11 20:03] LABS: BASOPHILS # (AUTO) 0.1 K/uL (0.0-8.0); BASOPHILS % (AUTO) 0.7 % (0.0-2.0); EOSINOPHILS # (AUTO) 0.5 K/uL (0.0-0.7); EOSINOPHILS % (AUTO) 5.5 % (0.0-7.0); HEMATOCRIT 33.7 % (31.2-41.9); LYMPHOCYTES # (AUTO) 1.5 K/uL (20.0-40.0); LYMPHOCYTES % (AUTO) 16.1 % (20.5-51.5); MEAN CORPUSCULAR HEMOGLOBIN 28.9 uug (24.7-32.8); MEAN CORPUSCULAR HGB CONC 33 g/dL (32.3-35.6); MONOCYTES # (AUTO) 0.7 K/uL (2.0-10.0); MONOCYTES % (AUTO) 8.1 % (0.0-11.0); NEUTROPHILS # (AUTO) 6.3 K/uL (1.8-8.9); NEUTROPHILS % (AUTO) 69.6 % (38.5-71.5); PLATELET COUNT (AUTO) 328 K/uL (179-408); RED BLOOD CELL COUNT(AUTO) 3.79 MIL/uL (3.63-4.92); WHITE BLOOD COUNT (AUTO) 9.1 K/uL (3.8-11.8)
[2019-06-11 20:11] LABS: POTASSIUM 4.4 mmol/L (3.5-5.1)
[2019-06-11 20:17] LABS: BILIRUBIN,DIRECT 0.1 mg/dL (0.0-0.2); BILIRUBIN,TOTAL 0.4 mg/dL (0.2-1.0); TOTAL PROTEIN, SERUM 7.5 g/dL (6.4-8.2)
[2019-06-11] MEDS ORDERED: VANCOMYCIN IV 200 ML ONE (20:22)
[2019-06-11] MEDS ORDERED: MORPHINE SULFATE 2 MG/1 ML DISP.SYRIN IV ONE (21:00)
[2019-06-11] MEDS ORDERED: ONDANSETRON 4 MG/2 ML VIAL IV ONE (21:00)
[2019-06-11] MEDS ORDERED: ONDANSETRON 4 MG/2 ML VIAL ONE (21:13)
[2019-06-11] MEDS ORDERED: MORPHINE SULFATE 2 MG/1 ML DISP.SYRIN ONE (21:14)
--- NOTE | 2019-06-11 22:09 | NUR ---
PT WILL BE ADMITTED UNDER DR MORENO DX OSTEOMYELITIS TELE RM 317 BELONGINGS LIST SIGNED/CO-SIGNED MRSA SWAB/SURVEILLANCE DONE R AC [id number] WELL AND INTACT [id number] UP BED AT LOWEST POSITION
--- NOTE | 2019-06-11 22:12 | NUR ---
NESSA (DR MAK) ON THE PHONE WITH DR ZACHARY SINGH ABOUT OTHRO CONSULT LATERAL MALLEOLUS SKIN BREAKDOWN/ INFECTION PT WILL BE ADMITTED UNDER DR MORENO ORDERS TRANSCRIBED: VANCOMYCIN IV PHARMACY TO DOSE LOW SODIUM DIET CBC CMP TOMORROW MORNING CONTINUE HOME MEDS Addendum: 06/12/[address] GRIER
--- NOTE | 2019-06-11 22:29 | NUR ---
HAND OFF AND SBAR GIVEN TO ANCA
[2019-06-11 23:04] VITALS: BP 130/66
[2019-06-12 00:47] VITALS: BP 146/64
[2019-06-12] MEDS ORDERED: LOSARTAN POTASSIUM 50 MG TABLET PO SCH (01:30)
[2019-06-12] MEDS ORDERED: METOPROLOL TARTRATE 25 MG TABLET PO SCH ×2 (01:30→09:00)
[2019-06-12] MEDS: GABAPENTIN 300 MG CAPSULE PO SCH ×2 (01:46→20:45)
[2019-06-12] MEDS: QUETIAPINE FUMARATE 25 MG TABLET PO SCH ×2 (01:47→20:44)
[2019-06-12] MEDS: ATORVASTATIN 10 MG TABLET PO SCH ×2 (01:47→20:45)
[2019-06-12 04:51] VITALS: BP 106/58
--- NOTE | 2019-06-12 05:40 | NUR ---
patient received from ER. no signs of acute distress and v/s stable throughout shift. safety and comfort measures provided at all times. IV patient and intact. ID band on. required medications administered and tolerated well. will continue to monitor and endorse care accordingly.
--- NOTE | 2019-06-12 05:45 | NUR ---
patient refusing pictures of left ankle at this time and does not want me to touch her.
--- NOTE | 2019-06-12 05:46 | NUR ---
will endorse will am shift to fu on vancomycin with pharmacy.
[2019-06-12 06:10] LABS: BILIRUBIN,TOTAL 0.4 mg/dL (0.2-1.0); CREATININE 0.8 mg/dL (0.6-1.3); POTASSIUM 4.4 mmol/L (3.5-5.1); TOTAL PROTEIN, SERUM 6.5 g/dL (6.4-8.2)
[2019-06-12 06:41] LABS: BASOPHILS # (AUTO) 0.1 K/uL (0.0-8.0); BASOPHILS % (AUTO) 0.9 % (0.0-2.0); EOSINOPHILS # (AUTO) 0.6 K/uL (0.0-0.7); EOSINOPHILS % (AUTO) 7.6 % (0.0-7.0); HEMATOCRIT 29.4 % (31.2-41.9); HEMOGLOBIN 9.8 g/dL (10.9-14.3); LYMPHOCYTES # (AUTO) 1.4 K/uL (20.0-40.0); LYMPHOCYTES % (AUTO) 17.2 % (20.5-51.5); MEAN CORPUSCULAR HEMOGLOBIN 29.7 uug (24.7-32.8); MEAN CORPUSCULAR HGB CONC 33 g/dL (32.3-35.6); MEAN CORPUSCULAR VOLUME 89.4 fL (75.5-95.3); MONOCYTES # (AUTO) 0.8 K/uL (2.0-10.0); MONOCYTES % (AUTO) 9.6 % (0.0-11.0); NEUTROPHILS # (AUTO) 5.2 K/uL (1.8-8.9); NEUTROPHILS % (AUTO) 64.7 % (38.5-71.5); PLATELET COUNT (AUTO) 290 K/uL (179-408); RED BLOOD CELL COUNT(AUTO) 3.29 MIL/uL (3.63-4.92)
[2019-06-12] MEDS ORDERED: MAGNESIUM HYDROXIDE 30 ML LIQUID UDC PO PRN (07:00)
[2019-06-12] MEDS ORDERED: HOME MED MISCELLANEOUS XX SCH (07:00)
[2019-06-12] MEDS ORDERED: BISACODYL 10 MG SUPP.RECT RC PRN (07:00)
[2019-06-12] MEDS ORDERED: FLEET ENEMA 133 ML BOTTLE RC PRN (07:00)
[2019-06-12] MEDS ORDERED: HYDROCODONE/APAP 5-325MG TABLET PO PRN (07:00)
--- NOTE | 2019-06-12 07:20 | NUR ---
RECEIVED PATIENT RESTING IN BED SLEEPING. NO ACUTE DISTRESS NOTED. BED IN LOWEST POSITION, SIDE RAILS UP X2, CALL LIGHT WITHIN REACH AND BED ALARM ON. WILL CONTINUE TO MONITOR.
[2019-06-12] MEDS: ASPIRIN 81 MG TAB.CHEW PO SCH (08:23)
[2019-06-12] MEDS: LEVOTHYROXINE SODIUM 100 MCG TABLET PO SCH (08:23)
[2019-06-12] MEDS: DOCUSATE SODIUM 100 MG CAPSULE PO SCH ×2 (08:23→20:44)
[2019-06-12] MEDS: METOPROLOL TARTRATE 25 MG TABLET PO SCH ×2 (08:24→20:45)
[2019-06-12] MEDS: FAMOTIDINE 20 MG TABLET PO SCH (08:24)
[2019-06-12] MEDS: LOSARTAN POTASSIUM 50 MG TABLET PO SCH ×2 (08:24→20:44)
[2019-06-12] MEDS: MULTIVIT, IRON, MIN NO. 8, FA TABLET PO SCH (08:24)
[2019-06-12] MEDS: SERTRALINE HCL 100 MG TABLET PO SCH (08:25)
[2019-06-12] MEDS: HYDROCODONE/APAP 5-325MG TABLET PO PRN ×2 (08:25→17:03)
--- NOTE | 2019-06-12 09:42 | NUR ---
Clinical Pharmacy Note: Vancomycin Dosing per Pharmacy Subjective: Vancomycin IV to start on this 88 yo female patient for cellulitis Objective: BUN 29/Scr 0.8 WBC 8.0 Temperature 98.2 ht 157 cm wt 46.7 kg Assessment/Plan: Will start vanco 750mg IV Q33 h for predicted vanco trough level of 15.7 mcg/ml at steady state. 2nd dose tomorrow at 0530. Will monitor renal function & adjust the dose if needed. Will continue to monitor
[2019-06-12 11:12] VITALS: BP 117/57
[2019-06-12 15:46] VITALS: BP 119/63
[2019-06-12] MEDS ORDERED: QUETIAPINE FUMARATE 25 MG TABLET PO SCH (18:00)
--- NOTE | 2019-06-12 18:39 | NUR ---
PATIENT RESTED INTERMITTENTLY THOUGHT DAY. PATIENT AGITATED AT TIME WANTING TO GET OUT OF BED. PATIENT REDIRECTED, BUT PATIENT NOT REDIRECTBLE. PATIENT REPORTING PAIN, PAIN MEDICATION ADMINISTERED. PATIENT REFUSED DRESSING CHANGE FOR WOUND. SAFETY MEASURES PROVIDED. WILL ENDORSE TO THE NIGHT NURSE.
[2019-06-12 19:45] VITALS: BP 146/70
[2019-06-12] MEDS: SENNOSIDES 1 TABLET PO SCH (20:44)
[2019-06-12] MEDS: MELATONIN 3 MG TABLET PO SCH (20:44)
[2019-06-12] MEDS ORDERED: GABAPENTIN 300 MG CAPSULE PO SCH (21:00)
[2019-06-12] MEDS ORDERED: ATORVASTATIN 10 MG TABLET PO SCH (21:00)
--- NOTE | 2019-06-12 21:40 | NUR ---
1st attempt was made to Dr. Rory Carrion regarding patients refusal for beef grinder despite education at 1999. 2nd attempt to contact Rory Carrion right now was successful. informed that patient has been refusing beef grinder despite continuous education until now. Dr. Carrion reported, "thats fine," and disconnected phone call. no new orders obtained at this time. patient was sinus rhythm during day shift. v/s stable and no signs of acute distress. currently sleeping. will continue to closely monitor patient and continue to educate patient regarding importance of beef grinder.
[2019-06-13 00:09] VITALS: BP 147/67
[2019-06-13] MEDS: HYDROCODONE/APAP 5-325MG TABLET PO PRN ×3 (01:01→15:49)
[2019-06-13] MEDS: diphenhydrAMINE 25 MG CAP PO PRN ×3 (01:01→15:49)
[2019-06-13 04:33] VITALS: BP 142/62
[2019-06-13] MEDS: LEVOTHYROXINE SODIUM 100 MCG TABLET PO SCH (05:39)
[2019-06-13] MEDS: VANCOMYCIN IV 750 MG in IV DEXTROSE 5% 250 ML IV SCH (05:39)
--- NOTE | 2019-06-13 05:44 | NUR ---
patient received lying in bed. no signs of acute distress and no signs of acute distress throughout shift. patient in still refusing tele monitor. Dr. Rory Carrion contacted. no new orders at that time. patient has been very anxious, agitated and confused throughout the night. tried to get out of bed multiple times. asked for [place] and Benadryl for c/o itching and pain, but refused when trying to administer. returned to [facility]. all medications administered and tolerated well. will continue to monitor and endorse care accordingly.
[2019-06-13 06:36] LABS: BASOPHILS # (AUTO) 0.1 K/uL (0.0-8.0); LYMPHOCYTES # (AUTO) 1.3 K/uL (20.0-40.0); MONOCYTES # (AUTO) 0.6 K/uL (2.0-10.0)
[2019-06-13 06:50] LABS: BASOPHILS % (AUTO) 0.9 % (0.0-2.0); EOSINOPHILS # (AUTO) 0.6 K/uL (0.0-0.7); EOSINOPHILS % (AUTO) 6.9 % (0.0-7.0); LYMPHOCYTES % (AUTO) 15.8 % (20.5-51.5); MEAN CORPUSCULAR HEMOGLOBIN 29.5 uug (24.7-32.8); MEAN CORPUSCULAR HGB CONC 33 g/dL (32.3-35.6); MEAN CORPUSCULAR VOLUME 88.8 fL (75.5-95.3); MONOCYTES % (AUTO) 7.3 % (0.0-11.0); NEUTROPHILS # (AUTO) 5.5 K/uL (1.8-8.9); NEUTROPHILS % (AUTO) 69.1 % (38.5-71.5); PLATELET COUNT (AUTO) 337 K/uL (179-408); RED BLOOD CELL COUNT(AUTO) 3.75 MIL/uL (3.63-4.92)
[2019-06-13 06:52] LABS: HEMATOCRIT 33.3 % (31.2-41.9); HEMOGLOBIN 11.1 g/dL (10.9-14.3)
[2019-06-13 07:03] LABS: THYROID STIMULATING HORMONE 32.717 mIU/mL (0.358-3.740)
--- NOTE | 2019-06-13 07:20 | NUR ---
RECEIVED PATIENT SLEEPING IN BED. NO ACUTE DISTRESS NOTED. BED IN LOWEST POSITION, SIDE RAILS UP X2, CALL LIGHT WITHIN REACH, AND BED ALARM ON. WILL CONTINUE TO MONITOR.
[2019-06-13 07:24] LABS: BILIRUBIN,TOTAL 0.4 mg/dL (0.2-1.0); CREATININE 0.7 mg/dL (0.6-1.3); MAGNESIUM 1.8 mg/dL (1.8-2.4); PHOSPHOROUS 2.6 mg/dL (2.5-4.9); POTASSIUM 3.8 mmol/L (3.5-5.1); TOTAL PROTEIN, SERUM 7.4 g/dL (6.4-8.2)
[2019-06-13] MEDS: SERTRALINE HCL 100 MG TABLET PO SCH (08:35)
[2019-06-13] MEDS: DOCUSATE SODIUM 100 MG CAPSULE PO SCH ×3 (08:35→20:49)
[2019-06-13] MEDS: ASPIRIN 81 MG TAB.CHEW PO SCH (08:35)
[2019-06-13] MEDS: FAMOTIDINE 20 MG TABLET PO SCH (08:35)
[2019-06-13] MEDS: MULTIVIT, IRON, MIN NO. 8, FA TABLET PO SCH (08:35)
[2019-06-13] MEDS: METOPROLOL TARTRATE 25 MG TABLET PO SCH ×2 (08:36→20:28)
[2019-06-13] MEDS: LOSARTAN POTASSIUM 50 MG TABLET PO SCH ×2 (08:36→20:28)
--- NOTE | 2019-06-13 10:56 | NUR ---
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 Romero note) Objective: BUN 17/Scr 0.7 WBC 8.0 Temperature 98 ht 157 cm wt 46.7 kg Assessment/Plan: Will continue vanco 750mg IV Q33 h for predicted vanco trough level of 15.7 mcg/ml at steady state. 2nd dose today at 0530. Will monitor renal function & adjust the dose if needed. Plan to order vanco trough level before 4thdose (not yet ordered). Will continue to monitor
[2019-06-13 11:32] VITALS: BP 145/68
--- NOTE | 2019-06-13 14:06 | NUR ---
WOUND CARE CONSULT: PT PRESENTS WITH OPEN WOUND TO LEFT LATERAL ANKLE, STERI STRIPS TO LEFT MEDIAL ANKLE (DRY AND INTACT) AND DRY ESCHAR TO LEFT ANTERIOR LOWER LEG WITH SUTURE, PRESENT ON ADMISSION. RECOMMEND ORTHO CONSULT/FOLLOW UP. RECOMMENDATIONS MADE FOR WOUND CARE TIL PT SEEN BY SURGEON. DISCUSSED WITH NURSING STAFF. PT IS INDEPENDENT WITH BED MOBILITY AND CONTINENT. Addendum: 06/13/19 at 1408 by NEW SOL RN Amended: Links added.
[2019-06-13] MEDS: PIPERACILLIN SODIUM/TAZOBACTAM 3.375 G in IV DEXTROSE 5% 50 ML IV SCH (16:57)
--- NOTE | 2019-06-13 18:13 | NUR ---
PATIENT RESTED IN BED. NO ACUTE DISTRESS NOTED. PATIENT SEEN BY WOUND NURSE AND INFECTIOUS DISEASE DRTania AND ORDERED ANTIBIOTICS AND WOUND TREATMENT. PATIENT TO BE SEEN BY DR GRIER. PATIENT REPORTED PAIN THROUGHOUT SHIFT, PAIN MEDICATION ADMINISTERED. SAFETY MEASURES PROVIDED. WILL ENDORSE TO THE ONCOMING NURSE.
--- NOTE | 2019-06-13 19:30 | NUR ---
Received patient in bed, resting. Confused AO x 1. Side rails up x 3. Bed alarm on. Safety precautions in place. IV in right AC and left FA patent and in tact. Fall precautions in place. Will continue to monitor patient.
[2019-06-13 20:00] VITALS: BP 163/81
[2019-06-13] MEDS: MELATONIN 3 MG TABLET PO SCH ×2 (20:26→20:49)
[2019-06-13] MEDS: ATORVASTATIN 10 MG TABLET PO SCH (20:26)
[2019-06-13] MEDS: SENNOSIDES 1 TABLET PO SCH ×2 (20:26→20:50)
[2019-06-13] MEDS: QUETIAPINE FUMARATE 25 MG TABLET PO SCH (20:27)
[2019-06-13] MEDS: GABAPENTIN 300 MG CAPSULE PO SCH ×2 (20:27→21:00)
[2019-06-14] MEDS: PIPERACILLIN SODIUM/TAZOBACTAM 3.375 G in IV DEXTROSE 5% 50 ML IV SCH ×3 (00:40→18:06)
[2019-06-14] MEDS: diphenhydrAMINE 25 MG CAP PO PRN ×2 (01:02→15:12)
[2019-06-14] MEDS: HYDROCODONE/APAP 5-325MG TABLET PO PRN ×2 (01:02→15:12)
[2019-06-14 04:00] VITALS: BP 175/79
[2019-06-14] MEDS: LEVOTHYROXINE SODIUM 100 MCG TABLET PO SCH ×2 (05:27→05:36)
--- NOTE | 2019-06-14 05:37 | NUR ---
PATIENT ALERT BUT WITH CONFUSION NOTED, NO SOB NO CHEST PAIN. PATIENT REFUSED THYROID MEDICATION, AND REFUSED DRESSING CHANGES ON L ANKLE AND L LEG. PATIENT GETS AGITATED WHEN CONT TO OFFER MEDS AND TREATMENT. CONT TO MONITOR.
--- NOTE | 2019-06-14 07:30 | NUR ---
Patient calm and comfortable with no signs of distress; Patient will continue to be monitored.
[2019-06-14] MEDS: DOCUSATE SODIUM 100 MG CAPSULE PO SCH ×2 (09:29→20:44)
[2019-06-14] MEDS: LOSARTAN POTASSIUM 50 MG TABLET PO SCH ×2 (09:29→20:44)
[2019-06-14] MEDS: FAMOTIDINE 20 MG TABLET PO SCH (09:29)
[2019-06-14] MEDS: SERTRALINE HCL 100 MG TABLET PO SCH (09:29)
[2019-06-14] MEDS: MULTIVIT, IRON, MIN NO. 8, FA TABLET PO SCH (09:30)
[2019-06-14] MEDS: METOPROLOL TARTRATE 25 MG TABLET PO SCH ×2 (09:30→20:45)
[2019-06-14] MEDS: ASPIRIN 81 MG TAB.CHEW PO SCH (09:30)
[2019-06-14 10:57] VITALS: BP 167/78
--- NOTE | 2019-06-14 11:57 | NUR ---
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 Romero note) Objective: BUN 17/Scr 0.7(06/13) WBC 8.0 (06/13) Temperature 98.1 ht 157 cm wt 46.7 kg Assessment/Plan: Will continue vanco 750mg IV Q33 h for predicted vanco trough level of 15.7 mcg/ml at steady state. 2nd dose given yesterday at 0530. Will monitor renal function & adjust the dose if needed. Plan to order vanco trough level before 4thdose (not yet ordered). Will continue to monitor
[2019-06-14] MEDS: VANCOMYCIN IV 750 MG in IV DEXTROSE 5% 250 ML IV SCH (15:12)
[2019-06-14 15:29] VITALS: BP 164/82
--- NOTE | 2019-06-14 19:40 | NUR ---
Received patient awake in bed. AO x 1. Patient agitated at the moment. No SOB or respiratory distress noted. Bed alarm on. Safety protocols in place. Bed locked, in lowest position, with 3 side rails up. Will continue to monitor appropriately.
--- NOTE | 2019-06-14 19:48 | NUR ---
Patient with baseline confusion trying to get out bed multiple times through out shift ; patient tried to be reoriented. Patient NPO status for surgical procedure of left ankle. Patient requesting morphine; patient placed on 2mg PO morphine [id number] per MD orders; along with D/C [place]; Report given to oncoming nurse.
[2019-06-14 20:00] VITALS: BP 155/82
[2019-06-14] MEDS: SENNOSIDES 1 TABLET PO SCH (20:43)
[2019-06-14] MEDS: QUETIAPINE FUMARATE 25 MG TABLET PO SCH (20:43)
[2019-06-14] MEDS: ATORVASTATIN 10 MG TABLET PO SCH (20:43)
[2019-06-14] MEDS: CULTURELLE CAPSULE PO SCH (20:43)
[2019-06-14] MEDS: GABAPENTIN 300 MG CAPSULE PO SCH (20:44)
[2019-06-14] MEDS: MELATONIN 3 MG TABLET PO SCH (20:44)
[2019-06-14] MEDS: MORPHINE SULFATE 20 MG/1 ML ORAL LIQ. PO PRN (20:47)
[2019-06-15] VITALS (7 sets, daily range): BP systolic 134–158; BP diastolic 66–82
[2019-06-15] MEDS: PIPERACILLIN SODIUM/TAZOBACTAM 3.375 G in IV DEXTROSE 5% 50 ML IV SCH ×3 (02:29→17:37)
--- NOTE | 2019-06-15 05:40 | NUR ---
Patient slept well throughout the night. Did not try to get out of bed. No acute change in condition. Given morphine for pain on left leg. Dressing on left leg changed at 0330. Patient NPO after midnight, going for procedure with Dr. Perry in the morning. Pre-op checklist initiated but not completed. Will endorse accordingly.
[2019-06-15] MEDS: LOSARTAN POTASSIUM 50 MG TABLET PO SCH ×2 (05:45→20:48)
--- NOTE | 2019-06-15 05:46 | NUR ---
Cozaar 50mg given early due to elevated BP.
[2019-06-15] MEDS: LEVOTHYROXINE SODIUM 100 MCG TABLET PO SCH (06:23)
[2019-06-15] MEDS: METOPROLOL TARTRATE 25 MG TABLET PO SCH ×2 (06:40→20:48)
--- NOTE | 2019-06-15 06:40 | NUR ---
Lopressor 25mg for 0900 given now because of elevated BP.
[2019-06-15 06:46] LABS: *BILIRUBIN,URIN NEGATIVE (NEGATIVE); *BLOOD, URINE NEGATIVE (NEGATIVE); *CLARITY,URINE SLIGHTLY CLOUDY (CLEAR); *COLOR,URINE YELLOW (YELLOW); *KETONES,URINE NEGATIVE (NEGATIVE); *UROBILINOGEN,URINE 0.2 E.U./dl (NORMAL); LEUKOCYTE ESTERASE ,URINE 1+ (NEGATIVE); NITRITE, URINE NEGATIVE (NEGATIVE); UGLUCOSE NEGATIVE (NEGATIVE)
--- NOTE | 2019-06-15 07:30 | NUR ---
Patient calm and comfortable through out shift; patient will continue to be monitored.
--- NOTE | 2019-06-15 07:30 | NUR ---
Patient calm and comfortable resting in bed with no signs of distress; patient will continue to be monitored.
[2019-06-15] MEDS ORDERED: POLYMYXIN B SULFATE 500,000 UNITS, BACITRACIN 50,000 UNITS, NORMAL SALINE 20 ML MC ONE ×3 (07:45)
[2019-06-15 07:50] LABS: BACTERIA,URINE FEW /HPF (NONE SEEN); RBC,URINE NONE SEEN /HPF (0-3); SQUAMOUS EPITHELIAL CELL,UR FEW /HPF (NONE SEEN); WBC,URINE 0-3 /HPF (0-3)
[2019-06-15] MEDS: NITROGLYCERIN OINT 1 GM PACKET TP SCH ×2 (08:48→12:00)
[2019-06-15] MEDS: SERTRALINE HCL 100 MG TABLET PO SCH (08:48)
[2019-06-15] MEDS: FAMOTIDINE 20 MG TABLET PO SCH (08:49)
[2019-06-15] MEDS: DOCUSATE SODIUM 100 MG CAPSULE PO SCH ×2 (08:49→20:48)
[2019-06-15] MEDS: CULTURELLE CAPSULE PO SCH ×2 (08:50→20:47)
[2019-06-15] MEDS: ASPIRIN 81 MG TAB.CHEW PO SCH (08:50)
[2019-06-15] MEDS: MULTIVIT, IRON, MIN NO. 8, FA TABLET PO SCH (08:51)
[2019-06-15] MEDS ORDERED: VANCOMYCIN 1000 MG VIAL ONE (11:10)
--- NOTE | 2019-06-15 11:37 | NUR ---
Patient went down stairs for surgical procedure of Removal of infected hardware of the left ankle; patient in stable condition; medication went over with anesthesiologist; and OR nurse. Consent signed by two .
[2019-06-15] MEDS ORDERED: CEFAZOLIN 1 G VIAL IM ONE (12:00)
[2019-06-15] MEDS ORDERED: SEVOFLURANE 250 ML BOTTLE IH ONE (12:00)
[2019-06-15] MEDS ORDERED: IV NORMAL SALINE 1000 ML BAG IV ONE ×2 (12:00)
[2019-06-15] MEDS ORDERED: PROPOFOL 200 MG/20 ML BOTTLE IV ONE (12:00)
[2019-06-15] MEDS ORDERED: LORAZEPAM 1 MG TABLET PO PRN (13:00)
[2019-06-15] MEDS ORDERED: FENTANYL CITRATE 100 MCG/2 ML AMPUL ONE (13:00)
[2019-06-15] MEDS ORDERED: hydrALAZINE HCL 20 MG/1 ML VIAL ONE (13:32)
[2019-06-15] MEDS: MORPHINE SULFATE 20 MG/1 ML ORAL LIQ. PO PRN (15:16)
[2019-06-15] MEDS: POTASSIUM CHLORIDE 20 MEQ in IV D5 1/2 NS 1000 ML 1,000 ML IV PRN (15:57)
--- NOTE | 2019-06-15 16:11 | NUR ---
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 Romero note) Objective: BUN 17/Scr 0.7(06/13) WBC 8.0 (06/13) Temperature 97.8 ht 157 cm wt 46.7 kg Trough due tonight at 2300 Assessment/Plan: Will continue vanco 750mg IV Q33 h for predicted vanco trough level of 15.7 mcg/ml at steady state. Plan to order vanco trough level before 4thdose (due tonight at 2300). RN endorsed to hold if trough >20. Will check in am and adjust as needed. Will continue to monitor
[2019-06-15] MEDS: MORPHINE SULFATE 4 MG/1 ML DISP.SYRIN IV PRN ×2 (17:38→20:49)
--- NOTE | 2019-06-15 19:49 | NUR ---
Patient with episodes of confusion ; patient reorientated trying when trying to get out of bed; patient had removal of infected hardware of the left ankle; patient came back in stable condition. Patient given morphine to help with post op pain ; patient iv fluids given ;patient call light with in reach; report given to oncoming nurse.
[2019-06-15] MEDS: diphenhydrAMINE 25 MG CAP PO PRN (20:47)
[2019-06-15] MEDS: QUETIAPINE FUMARATE 25 MG TABLET PO SCH (20:47)
[2019-06-15] MEDS: SENNOSIDES 1 TABLET PO SCH (20:47)
[2019-06-15] MEDS: GABAPENTIN 300 MG CAPSULE PO SCH (20:48)
[2019-06-15] MEDS: MELATONIN 3 MG TABLET PO SCH (20:48)
[2019-06-15] MEDS: ATORVASTATIN 10 MG TABLET PO SCH (20:48)
[2019-06-15] MEDS: VANCOMYCIN IV 750 MG in IV DEXTROSE 5% 250 ML IV SCH (23:30)
[2019-06-16] MEDS: PIPERACILLIN SODIUM/TAZOBACTAM 3.375 G in IV DEXTROSE 5% 50 ML IV SCH ×2 (01:14→09:10)
[2019-06-16] MEDS: POTASSIUM CHLORIDE 20 MEQ in IV D5 1/2 NS 1000 ML 1,000 ML IV PRN (05:31)
[2019-06-16] MEDS: MORPHINE SULFATE 4 MG/1 ML DISP.SYRIN IV PRN ×3 (05:32→18:15)
[2019-06-16] MEDS: LEVOTHYROXINE SODIUM 100 MCG TABLET PO SCH (05:33)
[2019-06-16] MEDS: NITROGLYCERIN OINT 1 GM PACKET TP SCH ×4 (05:48→17:32)
--- NOTE | 2019-06-16 05:48 | NUR ---
patient received lying in bed and confused. no signs of acute distress and v/s stable. safety and comfort measures provided at all times. all needs met. morphine administered twice for c/o of pain and tolerated well. will continue plan of care and endorse accordingly.
[2019-06-16 06:15] VITALS: BP 140/58
[2019-06-16] MEDS: CULTURELLE CAPSULE PO SCH ×2 (08:56→21:08)
[2019-06-16] MEDS: DOCUSATE SODIUM 100 MG CAPSULE PO SCH ×2 (08:56→21:07)
[2019-06-16] MEDS: ASPIRIN 81 MG TAB.CHEW PO SCH (08:56)
[2019-06-16] MEDS: MULTIVIT, IRON, MIN NO. 8, FA TABLET PO SCH (08:56)
[2019-06-16] MEDS: SERTRALINE HCL 100 MG TABLET PO SCH (08:56)
[2019-06-16] MEDS: FAMOTIDINE 20 MG TABLET PO SCH (08:56)
[2019-06-16] MEDS: METOPROLOL TARTRATE 25 MG TABLET PO SCH ×2 (08:58→21:00)
[2019-06-16] MEDS: LOSARTAN POTASSIUM 50 MG TABLET PO SCH ×2 (08:58→21:00)
--- NOTE | 2019-06-16 11:31 | NUR ---
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 Romero note) Objective: BUN 17/Scr 0.7(06/13) WBC 8.0 (06/13) Temperature 98 ht 157 cm wt 46.7 kg Vanco trough level on 06/15 at 2300: 6.2 Assessment/Plan: Since vanco through level is sub-therapeutic, will change vanco to 750mg IV Q20 h for predicted vanco trough level of 17 mcg/ml at steady state. 2nd dose today at 1999. Will review renal function & adjust the dose if needed. Plan to order vanco trough level before 4thdose (not yet ordered). Will continue to monitor
[2019-06-16 11:42] VITALS: BP 98/48
[2019-06-16] MEDS: HYDROCODONE/APAP 10-325 MG TABLET PO PRN (13:03)
[2019-06-16] MEDS: OXACILLIN SODIUM 2 G in IV NORMAL SALINE 100 ML IV SCH ×2 (14:10→18:17)
[2019-06-16 15:52] VITALS: BP 123/55
--- NOTE | 2019-06-16 18:30 | NUR ---
Pt AAOx2, confused at times but pleasantly. Pt able to make needs known in [place]. Pt compliant with administration of routine medications. Pain medication requested for 8/10 pain to Sx site. Pt teaching provided regarding current plan of care. Wound and skin care done as ordered. antibiotics administered as ordered. Nop acute distress noted. Bed in locked and lowest position, with side rails up and call light within reach.
[2019-06-16] MEDS ORDERED: VANCOMYCIN IV 750 MG in IV DEXTROSE 5% 250 ML IV SCH (20:00)
[2019-06-16 20:58] VITALS: BP 90/43
[2019-06-16] MEDS: MELATONIN 3 MG TABLET PO SCH (21:07)
[2019-06-16] MEDS: GABAPENTIN 300 MG CAPSULE PO SCH (21:07)
[2019-06-16] MEDS: SENNOSIDES 1 TABLET PO SCH (21:08)
[2019-06-16] MEDS: ATORVASTATIN 10 MG TABLET PO SCH (21:08)
[2019-06-16] MEDS: diphenhydrAMINE 25 MG CAP PO PRN (21:08)
[2019-06-16] MEDS: QUETIAPINE FUMARATE 25 MG TABLET PO SCH (21:08)
[2019-06-17] MEDS: OXACILLIN SODIUM 2 G in IV NORMAL SALINE 100 ML IV SCH ×4 (00:29→17:31)
[2019-06-17] MEDS: LEVOTHYROXINE SODIUM 100 MCG TABLET PO SCH (05:14)
[2019-06-17] MEDS: NITROGLYCERIN OINT 1 GM PACKET TP SCH ×4 (05:17→17:48)
[2019-06-17] MEDS: POTASSIUM CHLORIDE 20 MEQ in IV D5 1/2 NS 1000 ML 1,000 ML IV PRN (05:18)
--- NOTE | 2019-06-17 05:23 | NUR ---
patient received lying in bed and sleeping. no signs of acute distress and v/s stable throughout the night. IV in tact and patent. BP medications on my shift held as patient BP was low. Nitrobid x2, metoprolol, Cozaar returned to pyxis. safety and comfort measures provided at all times. will continue plan of care and endorse care accordingly.
[2019-06-17 05:58] VITALS: BP 98/43
--- NOTE | 2019-06-17 08:30 | NUR ---
Received patient awake in bed. AAOx3 with episodes of confusion. In no acute distress at this time. IV on R FA intact and patent with IVF running at this time. Safety measures implemented. Call light within reach. Will continue to monitor.
[2019-06-17 09:13] LABS: BASOPHILS % (AUTO) 0.2 % (0.0-2.0); EOSINOPHILS # (AUTO) 0.5 K/uL (0.0-0.7); EOSINOPHILS % (AUTO) 3.4 % (0.0-7.0); HEMATOCRIT 28.9 % (31.2-41.9); HEMOGLOBIN 9.3 g/dL (10.9-14.3); LYMPHOCYTES # (AUTO) 1.7 K/uL (20.0-40.0); LYMPHOCYTES % (AUTO) 10.3 % (20.5-51.5); MEAN CORPUSCULAR HEMOGLOBIN 29.2 uug (24.7-32.8); MEAN CORPUSCULAR HGB CONC 32 g/dL (32.3-35.6); MEAN CORPUSCULAR VOLUME 90.7 fL (75.5-95.3); MONOCYTES # (AUTO) 0.8 K/uL (2.0-10.0); MONOCYTES % (AUTO) 4.9 % (0.0-11.0); NEUTROPHILS % (AUTO) 81.2 % (38.5-71.5); RED BLOOD CELL COUNT(AUTO) 3.19 MIL/uL (3.63-4.92)
[2019-06-17 09:26] LABS: BILIRUBIN,TOTAL 0.2 mg/dL (0.2-1.0); CREATININE 1.2 mg/dL (0.6-1.3); PHOSPHOROUS 3.3 mg/dL (2.5-4.9); TOTAL PROTEIN, SERUM 6.1 g/dL (6.4-8.2)
[2019-06-17 09:34] LABS: PLATELET COUNT (AUTO) 241 K/uL (179-408)
[2019-06-17] MEDS: CULTURELLE CAPSULE PO SCH ×2 (10:32→21:25)
[2019-06-17] MEDS: SERTRALINE HCL 100 MG TABLET PO SCH (10:33)
[2019-06-17] MEDS: MULTIVIT, IRON, MIN NO. 8, FA TABLET PO SCH (10:33)
[2019-06-17] MEDS: FAMOTIDINE 20 MG TABLET PO SCH (10:33)
[2019-06-17] MEDS: DOCUSATE SODIUM 100 MG CAPSULE PO SCH ×2 (10:33→21:25)
[2019-06-17] MEDS: LOSARTAN POTASSIUM 50 MG TABLET PO SCH ×2 (10:33→21:24)
[2019-06-17] MEDS: METOPROLOL TARTRATE 25 MG TABLET PO SCH ×2 (10:34→21:25)
[2019-06-17] MEDS: ASPIRIN 81 MG TAB.CHEW PO SCH (10:37)
--- NOTE | 2019-06-17 10:40 | NUR ---
Discussed the need of PICC line to be inserted for 6 weeks of antibiotics. Patient verbalized understanding and signed consent. MD ordered estevez catheter to be placed. Explained risks and benefits. Patient refused.
[2019-06-17] MEDS: MORPHINE SULFATE 4 MG/1 ML DISP.SYRIN IV PRN ×5 (10:44→22:12)
[2019-06-17 11:12] VITALS: BP 137/53
[2019-06-17] MEDS: HYDROCODONE/APAP 10-325 MG TABLET PO PRN ×2 (13:19→17:47)
[2019-06-17 15:11] VITALS: BP 114/51
--- NOTE | 2019-06-17 18:04 | NUR ---
Patient continues to refuse estevez to be inserted. Patient complained of general left leg pain that radiates all the way to toes on pain scale of 10/10; medicated appropriately with PRN Morphine and [place]. In no acute distress. Resting in bed comfortably at this time. Call light within reach. Will endorse care accordingly.
[2019-06-17 19:59] VITALS: BP 102/47
[2019-06-17 21:23] VITALS: BP 124/63
[2019-06-17] MEDS: GABAPENTIN 300 MG CAPSULE PO SCH (21:25)
[2019-06-17] MEDS: QUETIAPINE FUMARATE 25 MG TABLET PO SCH (21:25)
[2019-06-17] MEDS: SENNOSIDES 1 TABLET PO SCH (21:25)
[2019-06-17] MEDS: MELATONIN 3 MG TABLET PO SCH (21:25)
[2019-06-17] MEDS: ATORVASTATIN 10 MG TABLET PO SCH (21:25)
[2019-06-18 00:11] VITALS: BP 95/64
[2019-06-18] MEDS: OXACILLIN SODIUM 2 G in IV NORMAL SALINE 100 ML IV SCH ×3 (00:14→12:03)
[2019-06-18 04:58] VITALS: BP 103/57
[2019-06-18] MEDS: LEVOTHYROXINE SODIUM 100 MCG TABLET PO SCH (05:42)
[2019-06-18] MEDS: POTASSIUM CHLORIDE 20 MEQ in IV D5 1/2 NS 1000 ML 1,000 ML IV PRN (05:49)
[2019-06-18] MEDS: NITROGLYCERIN OINT 1 GM PACKET TP SCH ×2 (06:00)
--- NOTE | 2019-06-18 06:44 | NUR ---
patient refuses estevez, voided x 3, no abdomen distention or tenderness. bp ran low, did not give nitro for that reason. pain managed by morphine. patient slept well. patient is in no acute distress.
[2019-06-18] MEDS: SERTRALINE HCL 100 MG TABLET PO SCH (08:23)
[2019-06-18] MEDS: CULTURELLE CAPSULE PO SCH (08:23)
[2019-06-18] MEDS: FAMOTIDINE 20 MG TABLET PO SCH (08:23)
[2019-06-18] MEDS: ASPIRIN 81 MG TAB.CHEW PO SCH (08:23)
[2019-06-18] MEDS: DOCUSATE SODIUM 100 MG CAPSULE PO SCH (08:23)
[2019-06-18] MEDS: MULTIVIT, IRON, MIN NO. 8, FA TABLET PO SCH (08:23)
[2019-06-18] MEDS: MORPHINE SULFATE 4 MG/1 ML DISP.SYRIN IV PRN (08:29)
[2019-06-18] MEDS ORDERED: DIPH25TA27 PO (08:46)
[2019-06-18] MEDS ORDERED: [UNRECOGNIZED DRUG - CODE] IV (08:46)
[2019-06-18] MEDS ORDERED: GABA-534 PO (08:46)
[2019-06-18] MEDS ORDERED: ISOS30TA6 PO (08:46)
[2019-06-18] MEDS: LOSARTAN POTASSIUM 50 MG TABLET PO SCH (09:00)
[2019-06-18] MEDS: METOPROLOL TARTRATE 25 MG TABLET PO SCH (09:00)
[2019-06-18 09:33] LABS: BILIRUBIN,TOTAL 0.2 mg/dL (0.2-1.0); CREATININE 1.1 mg/dL (0.6-1.3); MAGNESIUM 1.8 mg/dL (1.8-2.4); PHOSPHOROUS 3.4 mg/dL (2.5-4.9); POTASSIUM 4.3 mmol/L (3.5-5.1); TOTAL PROTEIN, SERUM 6.6 g/dL (6.4-8.2)
[2019-06-18 09:47] LABS: BASOPHILS # (AUTO) 0.1 K/uL (0.0-8.0); BASOPHILS % (AUTO) 0.5 % (0.0-2.0); EOSINOPHILS # (AUTO) 0.8 K/uL (0.0-0.7); EOSINOPHILS % (AUTO) 6.3 % (0.0-7.0); HEMATOCRIT 27.4 % (31.2-41.9); HEMOGLOBIN 8.8 g/dL (10.9-14.3); LYMPHOCYTES # (AUTO) 1.3 K/uL (20.0-40.0); LYMPHOCYTES % (AUTO) 10.2 % (20.5-51.5); MEAN CORPUSCULAR HEMOGLOBIN 28.8 uug (24.7-32.8); MEAN CORPUSCULAR HGB CONC 32 g/dL (32.3-35.6); MEAN CORPUSCULAR VOLUME 89.2 fL (75.5-95.3); MONOCYTES # (AUTO) 0.8 K/uL (2.0-10.0); MONOCYTES % (AUTO) 6.3 % (0.0-11.0); NEUTROPHILS # (AUTO) 9.5 K/uL (1.8-8.9); NEUTROPHILS % (AUTO) 76.7 % (38.5-71.5); PLATELET COUNT (AUTO) 227 K/uL (179-408); RED BLOOD CELL COUNT(AUTO) 3.07 MIL/uL (3.63-4.92); WHITE BLOOD COUNT (AUTO) 12.4 K/uL (3.8-11.8)
--- NOTE | 2019-06-18 10:02 | NUR ---
Pt received resting in bed this morning. No acute distress or SOB. C/O pain 03/19 to general left leg, morphine administered per PRN orders. Pt reports effective. Pt compliant with routine medication administration. BP medications held due to BP 107/54, hr 67. Bed in locked and lowest position, side rails up, alarm on. Double lumen PICC line flushed and running fluids well. Call light within reach. Discharge order received, will follow up with plan of care accordingly and continue to monitor.
--- NOTE | 2019-06-18 11:37 | NUR ---
Spoke with Dr. Perry, received surgical clearance for discharge as planned. Needs to follow up with Dr. Perry in 1 wk. Will continue to monitor and follow up as needed.
[2019-06-18 11:41] VITALS: BP 132/60
[2019-06-18] MEDS ORDERED: ISOSORBIDE MONONITRATE 30 MG TAB.SR.24H PO SCH (12:06)
[2019-06-18 13:19] VITALS: BP 132/54
[2019-06-18] MEDS: HYDROCODONE/APAP 10-325 MG TABLET PO PRN (13:20)
--- NOTE | 2019-06-18 16:10 | NUR ---
Discharge paperwork completed, plan of care explained to Pt. Pt unable to sign due to Hx of Alzheimer's, pleasantly confused, 2 nurse co-sign, and copy placed in chart. Belongings accounted for returned and form placed in chart. Report called and given to Valentina at [facility]. All discharge concerns addressed. Wound care provided as ordered. Photos taken and placed in chart. VSS. Pt safely transferred to [facility] [place] and escorted out of hospital with window sash installer. Will remove from computer system shortly.
== END 2019-06-18 16:15 | DRG 493 ==
LOC: ER 19:29 → TELE3 22:30 → MEDSURG3 06-13 10:13
PROVIDERS: ADMIT Internal Medicine Nephrology; ATTEND Internal Medicine
PROC: 0SPG04Z Removal of Internal Fixation Device from Left Ankle Joint, Open Approach (ICD-10-PCS; principal; 2019-06-15)
PROC: 0QH Lower Bones, Insertion (ICD-10-PCS; 2019-06-15)
DX: T84.625A Infection and inflammatory reaction due to internal fixation device of left fibula, initial encounter (principal); L03.116 Cellulitis of left lower limb; T81.31XA Disruption of external operation (surgical) wound, not elsewhere classified, initial encounter; E44.0 Moderate protein-calorie malnutrition; Z68.1 Body mass index [BMI] 19.9 or less, adult; M86.8X6 Other osteomyelitis, lower leg; B95.61 Methicillin susceptible Staphylococcus aureus infection as the cause of diseases classified elsewhere; E03.9 Hypothyroidism, unspecified; E78.5 Hyperlipidemia, unspecified; D64.9 Anemia, unspecified; I25.2 Old myocardial infarction; I25.10 Atherosclerotic heart disease of native coronary artery without angina pectoris; Z95.5 Presence of coronary angioplasty implant and graft; X58.XXXD Exposure to other specified factors, subsequent encounter; F51.04 Psychophysiologic insomnia; F25.1 Schizoaffective disorder, depressive type; S82.845 Nondisplaced bimalleolar fracture of left lower leg; K21.9 Gastro-esophageal reflux disease without esophagitis; M85.80 Other specified disorders of bone density and structure, unspecified site; M19.90 Unspecified osteoarthritis, unspecified site; G30.9 Alzheimer's disease, unspecified; F02.80 Dementia in other diseases classified elsewhere, unspecified severity, without behavioral disturbance, psychotic disturbance, mood disturbance, and anxiety; S82.842G Displaced bimalleolar fracture of left lower leg, subsequent encounter for closed fracture with delayed healing
CPT/HCPCS: 36415; 71045; 73600; 73610; 73700; 83550; 83690; 83735; 84100; 84443; 85025; 85651; 85730; 86850; 86900; 86901; 87040; 87070; 87077; 87086; 93005; A4649; A4663; G0378; J0360; J0690; J2270; J2405; J2543; J2700; J3010; J3370; J3480; J3490; J7030; J7040; J7050; J7060; Q0163